=== PATIENT | male | born 1935 | race African-American/Black ===

== ENCOUNTER 2019-02-28 15:43 | Inpatient (IN) | payer MEDICARE, MEDICAID ==
[~2019-02-28 15:43] MED LIST: Heparin 10,000 UNITS/ 10 ML VIAL ONE
--- NOTE | 2019-02-28 16:55 | RAD ---
FExam: Chest one view HISTORY:Lethargy. Fall. Comparison: 04/18/2016 FINDINGS: Cardiac silhouette:Normal. Atherosclerosis of the aortic knob. Pulmonary vessels: Normal Costophrenic angles: Clear LUNGS: No masses or consolidation. Pneumothorax: None Osseous abnormalities: None IMPRESSION: Atherosclerosis of the aorta No acute cardiopulmonary process.
[2019-02-28 17:42] LABS: Hemoglobin 10.6 g/dL (14.0-18.0); Mean Corpuscular HGB CONC 32.2 g/dL (32.0-36.0); Mean Corpuscular Hemoglobin 27.7 pg (27.0-31.0); Mean Platelet Volume 8.8 fL (7.4-10.4); Platelet Count 332 thou/uL (130-400); RBC Distribution Width 17.1 % (11.5-14.5); Red Blood Cell (RBC) Count 3.85 mill/uL (4.70-6.10); White Blood Cell (WBC) Count 38.2 thou/uL (4.8-10.8)
[2019-02-28 17:58] LABS: Anisocytosis SLIGHT = 6-15 cells (100X) (0-5/hpf); Band 23 % (5-11); Lymphocytes 1 % (21-51); MDiff Complete? YES; Monocytes 2 % (0-10); Neutrophil 74 % (42-75); Platelet Morphology Comment Appears Adequate
[2019-02-28] MEDS ORDERED: Sodium Chloride 0.9% 100 ML ONE (17:58)
[2019-02-28] MEDS ORDERED: Piperacillin/Tazobactam 4.5 GM VIAL ONE (17:58)
[2019-02-28 18:27] LABS: CKMB 1.8 ng/mL (0-6.6)
[2019-02-28 18:45] LABS: ALT (SGPT) 13 U/L (8-55); AST (SGOT) 9 U/L (5-34); Albumin 3.1 g/dL (3.4-4.8); Alkaline Phosphatase 91 U/L (40-150); BUN (Urea Nitrogen) 112 mg/dL (8.4-25.7); Bilirubin, Total 0.2 mg/dL (0.2-1.2); Calc. Creatinine Clearance 0 mL/min (70-130); Chloride 113 mmol/L (98-107); Estimated GFR-MDRD 14; Globulin 4.1 g/dL (2.4-3.5); Glucose 100 mg/dL (83-110); Lipase 121 U/L (8-78); Potassium 5.6 mmol/L (3.5-5.1); Protein, Total 7.2 g/dL (5.8-8.1); Sodium 141 mmol/L (136-145)
[2019-02-28 18:48] LABS: Carbon Dioxide Less than 8 mmol/L (23-31)
--- NOTE | 2019-02-28 19:05 | CT ---
FEXAM: CT abdomen and pelvis without contrast PROVIDED CLINICAL HISTORY: Malaise COMPARISON: 04/18/2016 FINDINGS: The visualized lung bases are free of significant opacity. Bleb involving right middle lobe redemonst rated. The solid abdominal organs are suboptimally evaluated in the absence of IV contrast but demonstrate a stable unenhanced CT appearance. Dilation is limited by patient respiratory motion and streak artifa ct. No bowel dilatation, inflammatory fat stranding, free fluid or free air apparent. Large left hydr ocele is redemonstrated. Conspicuous vascular calcification. The osseous structures demonstrate no acute findings. IMPRESSION: No evidence for an acute process with limitations as above.
[2019-02-28] MEDS ORDERED: Clindamycin/D5W 900 mg/50 ml Premix Bag ONE (19:37)
[2019-02-28 19:41] LABS: Bilirubin Negative (Negative); Blood, Urine Small (Negative); Clarity CLOUDY (Clear); Glucose, Urine (Dipstick) Negative (Negative); Leukocyte Large (Negative); Nitrite Negative (Negative); Protein, Urine (Dipstick) 30 mg/dL (Neg-Trace); Specific Gravity, Urine 1.012 (1.002-1.036); Urobilinogen 0.2 mg/dL (0.2-1.0)
[2019-02-28 19:45] LABS: Yeast-AUWi Flag 211.3 (0-25.0)
[2019-02-28 19:53] LABS: Bacteria/HPF 1+ HPF (None Seen); Crystals/HPF 1+ CA OXALATE HPF (Negative); Manual Microscopic Reviewed? No Path Casts Seen; Renal Epithelial None Seen HPF (0-3); Transitional Epithelial NONE SEEN HPF (0-3); Yeast-All Forms 2+ HPF (None Seen)
[2019-02-28] MEDS ORDERED: Heparin 1,000 UNITS/ML VIAL ONE (20:17)
[2019-02-28 20:19] LABS: Base Excess-Venous -21.2 mmol/L (-2.0 to 3.0); Bicarbonate (HCO3v) 5.7 mmol/L (22.0-28.0); CO2 Tension (PvCO2) 16.5 mmHg (40.0-50.0); Calcium, Ionized 1.09 mmol/L (See Comments:); Chloride 123 mmol/L (98-107); O2 Tension (PvO2) 49.5 mmHg (35.0-45.0); Potassium 5.2 mmol/L (3.5-5.1); Sodium 139 mmol/L (138-145); T. Carbon Dioxide 6.2 mmol/L (22.0-28.0); pH (Venous) 7.148 (7.320-7.430); vO2 Saturation-calc 74.6 % (60.0-85.0)
--- NOTE | 2019-02-28 20:27 | RAD ---
CHEST ONE VIEW 02/28/19 COMPARISON: 02/28/19 HISTORY: Pain. Malaise. FINDINGS: Interval placement of a right sided vascular catheter, likely internal jugular in origin. Distal tip projects over the expected region of the superior vena cava. Atherosclerosis of the aorta is noted. S table cardiac silhouette. Lung volumes are slightly diminished when compared to the previous examinat ion. No consolidation or masses. No pneumothorax on this supine projection. IMPRESSION: Interval placement of a right sided vascular catheter. No pneumothorax on this supine projection. POS: PPP
[2019-02-28] MEDS ORDERED: Sodium Bicarb 50 MEQ/50 ML Abboject 8.4% SYRINGE ONE ×2 (20:31→20:34)
[2019-02-28] MEDS ORDERED: Sodium Bicarb 50 MEQ/50 ML VIAL ONE (20:36)
[2019-02-28] MEDS ORDERED: Acetaminophen 325 MG TAB PO PRN (21:41)
[2019-02-28] MEDS ORDERED: Ondansetron PF 4 MG/2 ML Vial IVP PRN (21:41)
[2019-02-28] MEDS ORDERED: Guaifenesin DM 100-10/5 ML UDCUP PO PRN (21:41)
[2019-02-28] MEDS ORDERED: Zolpidem Tartrate 5 MG TAB PO PRN (21:41)
[2019-02-28] MEDS ORDERED: Senokot S 8.6-50 MG TAB PO PRN (21:41)
[2019-02-28] MEDS ORDERED: Dextrose 5% in Water 1,000 ML IV PRN (21:51)
[2019-02-28] MEDS ORDERED: Insulin Regular 300 UNITS/3 ML VIAL SC PRN (21:51)
[2019-02-28] MEDS ORDERED: Dextrose 50% Abboject 50 ML SYRINGE SLOW IVP PRN (21:51)
--- NOTE | 2019-02-28 22:02 | PDOC.EVN ---
Event Note - Event Note Event Note: H&P [id number]
[2019-02-28 22:19] LABS: Actual Bicarbonate (HCO3a) 7.7 mEq/L (22-28); Analyzer IN Cardio ER; Base Excess (BEa) -18.3 mEq/L (-2.0 to +3.0); Calcium, Ionized 1.13 mmol/L (1.12-1.30); Carboxyhemoglobin (COHb) 0.3 gm% (0.0-3.0); Hemoglobin (Hb) 8.7 g/dL (14.0-18.0); O2 Tension (PaO2) 109.4 mmHg (> 60.0); Potassium - ABG Lab 4.97 mmol/L (3.70-5.30)
[2019-02-28 22:20] LABS: pH, Arterial 7.21 (7.35-7.45)
[2019-02-28 22:21] LABS: CO2 Tension 19.8 mmHg (35.0-45.0); Puncture Site RRA
[2019-02-28 22:48] LABS: Lactic Acid 5.9 mmol/L (0.5-2.2)
--- NOTE | 2019-02-28 22:51 | HP ---
CHIEF COMPLAINT: Not feeling well. HISTORY OF PRESENT ILLNESS: This is an 83-year-old male, extremely poor historian, does not provide any real history to be honest. History is per chart review and then discussion with the ER. The patient was apparently here in 2015 with similar complaints, was found to be in DKA at that point in time. At this point in time, the patient's physical examination and ER evaluation have resulted in a high white count of 38, pH of 7.15 with a pCO2 of 16, significant metabolic acidosis, bicarb less than 8 with an anion gap too high to count. The patient has a lactic acid of 6.4, elevated troponin, lipase of 121. Urinalysis that shows some blood and protein. Beta-hydroxybutyric acid level of 2.09, as well as a potassium of 5.6 and a creatinine of 4.86 and BUN of 112. Beyond this, no real history is available from the patient as he is not really talking much. The patient's medication review shows that he is on diabetic medications consistently metformin, which could potentially cause metformin acidosis. He does not state if he takes these drugs, but they were found on chart review as well as in medical reconciliation forms. The patient is seen and examined in the ER. No family at bedside. ALLERGIES: PER CHART REVIEW, NONE. PAST MEDICAL HISTORY: Diabetes, hypertension, and peripheral vascular disease. SOCIAL HISTORY: Unknown. FAMILY HISTORY: Unknown. REVIEW OF SYSTEMS: Not possible given the patient's physical condition. HOME MEDICATIONS: See MAR. PHYSICAL EXAMINATION: VITAL SIGNS: Blood pressure is 110/88, heart rate of 110, respiratory rate of 18, temperature of 98, and O2 saturations 100% on room air. HEENT: Pupils equal, round, and reactive to light and accommodation. Oral cavity moist and pink. NECK: Supple, mobile, and nontender. Thyroid appreciated. CARDIOVASCULAR: S1 and S2. 2/6 systolic ejection murmur. RESPIRATORY: Clear to auscultation bilaterally. No respiratory distress. ABDOMEN: Positive bowel sounds. Soft, nontender, and nondistended. EXTREMITIES: 2+ peripheral pulses noted. No cyanosis, clubbing, or edema. NEUROLOGIC: The patient withdraws to pain, responds to verbal stimuli. Does not make full sentences. Of note, the groin is enlarged and has a very foul smell. Nontender testicles. No pus noted. LABORATORY AND DIAGNOSTIC DATA: Abdominal CT scan and pelvic CT scan do not show any inflammatory process. Lab work as described in HPI. CBC, ABGs, chemistry panel, UA, toxicology reports were reviewed. ASSESSMENT: 1. Sepsis of unknown source. 2. Anemia. 3. Metabolic acidosis with respiratory compensation. 4. Lactic acidosis. 5. Elevated beta-hydroxybutyric acid. 6. Proteinuria. 7. Acute renal failure. 8. Hyperkalemia. 9. Possible uremia given elevated BUN. 10. Elevated troponins. PLAN: At this point in time, we will admit the patient in IMU. We will provide the patient with bicarb drip given significant acidosis. We will consult Nephrology. I am not sure if this is secondary to metformin use or if there is an infectious process somewhere. The patient likely has had this groin issue for a while, given that similar complaints led to a CT scan back in 2016, which did not show an inflammatory process. The patient does not have an inflammatory process at this point in time either. We will provide the patient with Zosyn for antibiotic coverage. We will also obtain blood cultures, which are ordered and pending. We will place a consult now to Nephrology as well as Infectious Disease. We will put the patient on sliding scale, n.p.o. for now. Repeat labs in a.m. We will obtain a BMP at 3 a.m. today, nurse to call me with results. Per documentation in the past, the patient has been a DNR. ER discussion with family stated the patient also be a DNR. However, I am unable to find any documentation stating that the patient is a DNR. So for now, we will refrain from putting a code status on him. If any family shows up for the patient, it is more coherent and wishes to make himself a DNR, this will need to be adjusted at a later time. No family at bedside, so no one to discuss the plan with. Overall prognosis appears to be guarded to poor. Job ID: [id number]
[2019-03-01] MEDS: Piperacillin/Tazobactam 3.375 GM in Sodium Chloride 0.9% 100 ML IVPB SCH ×5 (00:26→23:46)
[2019-03-01] MEDS: Sodium Bicarbonate 150 MEQ in Dextrose 5% in Water 1,000 ML IV SCH ×3 (02:13→17:30)
[2019-03-01 03:47] LABS: Anion Gap 22 mmol/L (10-20); BUN (Urea Nitrogen) 112 mg/dL (8.4-25.7); Calc. Creatinine Clearance 11 mL/min (70-130); Calcium 8.1 mg/dL (7.8-10.44); Chloride 113 mmol/L (98-107); Estimated GFR-MDRD 15; Glucose 232 mg/dL (83-110); Potassium 4.9 mmol/L (3.5-5.1); Sodium 139 mmol/L (136-145)
[2019-03-01 03:53] LABS: Carbon Dioxide 9 mmol/L (23-31)
[2019-03-01 04:00] LABS: Band 23 % (5-11); Hemoglobin 8.2 g/dL (14.0-18.0); Lymphocytes 2 % (21-51); MDiff Complete? YES; Mean Corpuscular Hemoglobin 27.4 pg (27.0-31.0); Mean Corpuscular Volume 85.5 fL (78.0-98.0); Mean Platelet Volume 8.9 fL (7.4-10.4); Monocytes 1 % (0-10); Neutrophil 74 % (42-75); Platelet Count 301 thou/uL (130-400); RBC Distribution Width 16.9 % (11.5-14.5); Red Blood Cell (RBC) Count 2.99 mill/uL (4.70-6.10); White Blood Cell (WBC) Count 35.2 thou/uL (4.8-10.8)
[2019-03-01] MEDS: Insulin Regular 300 UNITS/3 ML VIAL SC PRN ×2 (06:18→17:31)
[2019-03-01] MEDS ORDERED: glyBURIDE 2.5 MG TAB PO SCH (08:00)
[2019-03-01] MEDS: Aspirin Chewable 81 MG TAB PO SCH (09:39)
[2019-03-01 10:19] LABS: Anion Gap 19 mmol/L (10-20); BUN (Urea Nitrogen) 107 mg/dL (8.4-25.7); Calc. Creatinine Clearance 12 mL/min (70-130); Calcium 7.7 mg/dL (7.8-10.44); Carbon Dioxide 13 mmol/L (23-31); Chloride 111 mmol/L (98-107); Estimated GFR-MDRD 16; Glucose 205 mg/dL (83-110); Potassium 4.2 mmol/L (3.5-5.1); Sodium 139 mmol/L (136-145)
[2019-03-01 11:18] LABS: Creatinine, Urine 30.21 mg/dL (63-166)
--- NOTE | 2019-03-01 11:29 | CT ---
FCT brain. HISTORY: Altered mental status. Noncontrast enhanced CT images of the brain obtained. There is diffuse cortical atrophy and deep white matter ischemic changes. No evidence of acute intracranial masses, hemorrhages or strokes seen. There is abnormal opacification of the right mastoid air cells and middle ear. There is a area of monie ency through the right mastoid air cells. This may represent a right temporal bone fracture. IMPRESSION: 1: Diffuse cortical atrophy. 2: Right temporal bone fracture.
--- NOTE | 2019-03-01 14:34 | ULT ---
FTesticular ultrasound. HISTORY: Dilated scrotum and scrotal mass. Longitudinal and transverse images of the scrotum is obtained using multi hertz curvilinear transduce r. Real-time, color flow and spectral waveform Doppler analysis used to evaluate the scrotum. The right and left testicles are not visualized. There is a large heterogeneous area of mixed density within the testicle measuring approximately 10 x 10 cm. This collection has internal echoes and a fl uid fluid level. This may represent a intrascrotal hematoma versus abscess. No definite evidence of b lood flow seen within the collection. IMPRESSION: Mixed echogenic debris-filled heterogeneous intrascrotal material. The individual testicl es are difficult to visualize. If the patient has clinical symptoms of possible intrascrotal hematoma this is a possibility or other possibilities include abscess. Correlate with clinical exam.
[2019-03-01 16:49] LABS: Lactic Acid 2.2 mmol/L (0.5-2.2)
--- NOTE | 2019-03-01 17:35 | CT ---
FEXAM: CT abdomen and pelvis without contrast PROVIDED CLINICAL HISTORY: Perineal wound COMPARISON: 02/28/2019 FINDINGS: Trace left pleural fluid. Subsegmental atelectatic change left lung base. The solid abdominal organs demonstrate a stable CT appearance. No bowel dilatation, inflammatory fat stranding free fluid or free air apparent. Lou catheter is noted within urinary bladder with associ ated bladder gas. Large left hydrocele is noted. There is an irregular appearance to the perineum compatible with the p rovided clinical history of wound. There is no evidence for soft tissue gas more proximally within th e region of the ischiorectal fossa fat or medial proximal thigh regions. IMPRESSION: No significant interval change with respect to the prior examination is apparent.
--- NOTE | 2019-03-01 18:42 | CON ---
DATE OF CONSULTATION: 03/01/2019 REASON FOR CONSULTATION: Possible scrotal abscess. HISTORY OF PRESENT ILLNESS: Mr. Smiley is an 83-year-old male, who is a poor historian with multiple chronic medical problems including diabetes and multiple episodes of DKA as well as severe peripheral vascular disease. The patient is unable to provide much history. The majority of the history is obtained from the medical record as well as nursing. The patient had an admission at [facility] in 2016 with similar complaints, basically altered mental status and not feeling well. He was found to be in DKA at that time. The patient was sent from his nursing facility to the emergency room and was found to have a white blood cell count of 38, and was severely acidotic with a pH of 7.15, CO2 of 16, and a metabolic acidosis with a bicarb of less than 8. The patient's lactate at admission was 6.4. He had imaging of the abdomen and pelvis via CT as well as a brain CT. There was no significant hydroureteronephrosis. No stone diseases. The patient has a chronic scrotal edema and a very large hydrocele. He has some pressure sores on the posterior scrotum, which are chronic. He was evaluated during his hospitalization in [address] Chaidez for similar reason. Urology is being consulted to evaluate for potential abscess or source of his leukocytosis and sepsis appearance. There is currently no family at the bedside. The patient denies any pain currently. Initially when Urology was contacted about this, it was relayed that the only imaging that was performed was a scrotal ultrasound. However, a CT of the abdomen and pelvis on February 28 at the time of admission was performed. This was, however, repeated given the fact that it was not communicated a CT had already been done. REVIEW OF SYSTEMS: Unable to obtain secondary to the patient's condition. PAST MEDICAL HISTORY: Diabetes, hypertension, peripheral vascular disease. FAMILY HISTORY: Unknown. SOCIAL HISTORY: The patient lives in a nursing facility, otherwise unknown. HOME MEDICATIONS: See the medicine reconciliation form. These were reviewed. ALLERGIES: NO KNOWN DRUG ALLERGIES. PHYSICAL EXAMINATION: VITAL SIGNS: Afebrile, heart rate 94, blood pressure 144/62, oxygen saturation 100% on room air, respirations 13. GENERAL: He is awake and arousable, in no apparent distress. HEENT: Normocephalic, atraumatic. NECK: Supple. No masses or lymphadenopathy. CARDIOVASCULAR: Regular rate and rhythm. PULMONARY: Breathing unlabored. ABDOMEN: Soft, nontender/nondistended. No masses or organomegaly. No suprapubic tenderness to palpation. No suprapubic fullness. No CVA tenderness. GENITOURINARY: Uncircumcised penis. Meatus normal. Lou catheter in place draining clear yellow urine. Large left hydrocele. Left testis not palpable. Right testis palpable and atrophied, but otherwise normal. Mild skin breakdown on the posterior scrotum and scarring consistent with chronic pressure type wound on the posterior scrotum. No fluctuance/crepitus/surrounding erythema or induration. No purulent drainage. EXTREMITIES: No edema. NEUROLOGIC: The patient answers yes and no questions, but otherwise is not oriented. RADIOLOGY DATA: CT of the abdomen and pelvis demonstrates no significant findings consistent with abscess. There is a large left hydrocele. There is no air within the fluid. There is no evidence of soft tissue gas. Testicular ultrasound demonstrates mixed echogenic debris, filled heterogeneous intrascrotal material. Testicles are difficult to visualize. LABORATORY DATA: White blood cell count 35.2, hemoglobin 8.2, hematocrit 25.6, platelets 301. Sodium 139, potassium 4.2, chloride 111, bicarb 13, BUN 107, creatinine 4.35. Lactate 2.2. ASSESSMENT: An 83-year-old male with lactic acidosis, leukocytosis concerning for sepsis with history of poorly controlled diabetes as well as peripheral vascular disease with chronic left hydrocele and skin breakdown over posterior scrotum. PLAN: I reviewed all imaging with the patient and with nursing staff. Also reviewed his physical exam comparing this to how he was in 2016, there is essentially no change. The hydrocele is stable. There is some mild skin breakdown on the posterior scrotum, but no significant wound is present. There is no finding consistent with cellulitis, abscess, or any necrotizing infection either by imaging or physical exam. This is not likely contributing to the patient's leukocytosis and there is no indication for surgical intervention at this time. Urology can be reconsulted as necessary for questions. Thank you for allowing me to participate in the care of this patient. Job ID: [id number]
--- NOTE | 2019-03-01 18:59 | CON ---
DATE OF CONSULTATION: 03/01/2019 REASON FOR CONSULTATION: Altered mental status, metabolic acidosis, and bacteremia. HISTORY OF PRESENT ILLNESS: An 83-year-old, who has a history of type 2 diabetes, BPH, and hypertension, who was brought from [facility], after decrease in oral intake and having a fall the day before admission. Did not have any diarrhea. No seizure activity. He voids spontaneously without a catheter. On arrival, he was tachycardic and blood pressure was 104/56. The patient was given IV fluids and broad-spectrum antimicrobial therapy. The exam showed normal lung sounds. Heart exam showed S1 and S2 with tachycardia, but no murmurs. Abdomen was soft and not distended. There was marked enlargement of the testicular area structures. There was evidence of atrophy of the muscles of lower extremities. White cell count 38.2, hemoglobin 10.6, and platelets 332 with 22% bands. His creatinine on arrival was 4.86 with a baseline of 1.22 in 2016. Imaging studies included an abdomen and pelvis CT in a noncontrast study, unenhanced organs, which made their evaluation difficult. No bowel dilatation or evidence of inflammatory fat stranding. No free fluid. There is a large the left hydrocele noted. He had a brain CT, which demonstrated diffuse cortical atrophy and right temporal bone fracture. Currently, Mr. Smiley is obtunded he will briefly respond to questions, but he does not fully respond to orientation questions and does not follow commands very well. PAST MEDICAL HISTORY: Includes type 2 diabetes and cataracts, glaucoma, GERD, diarrhea intermittent, which is usually when he receives certain types of food stuffs, BPH, hydrocele, and hypertension. PAST SURGICAL HISTORY: Negative. ALLERGIES: NEGATIVE. SOCIAL HISTORY: No alcoholic beverages. Former smoker, quit more than 10 years ago. Lives in a [facility]. ALLERGIES: NONE. CURRENT MEDICATIONS: 1. Tylenol. 2. Aspirin. 3. Dextrose. 4. Glucagon. 5. Humulin. 6. Zofran. 7. Protonix. 8. Zosyn. 9. Zocor. 10. Zolpidem. PHYSICAL EXAMINATION: VITAL SIGNS: T-max 97.9, blood pressure 103/51, pulse 98, and respirations 21. SKIN: Shows inguinal areas of ulceration right behind the scrotum. Those are chronic, have been present more than a year, according to the [facility] nurse. GENERAL: He appears chronically ill, but in no acute distress. He is obtunded and does not respond orientation questions. He will say yes to certain questions, but it does not clear that he has any meaning to the answers that he gives. HEENT: His ocular movements are conjugate. Oral cavity with no pechanga teeth remaining in place. Oral mucosa normal. No thrush. LUNGS: Symmetric air entry. HEART: S1 and S2 with a soft aortic murmur. Regular rate. ABDOMEN: Soft, not distended or tender. Marked enlargement of the scrotal structures. EXTREMITIES: Plantar responses are indifferent. Pulses are diminished in dorsalis pedis. No edema noted. NEUROLOGIC: He is awake. Knew his name, but did not know where he was, could not elaborate on any answers. LABORATORY DATA: White cell count down to 35.2 and hemoglobin 8.2, platelets 301,000, and 23% bands. Sodium 139 and creatinine 4.86. Liver profile normal. Albumin 3.1. Urinalysis with 11 to 20 wbc's. Microbiology with 2 sets of blood cultures with E. coli. Urine culture, no growth at 24 hours. ASSESSMENT: 1. 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 2. New onset of general malaise with fever, vomiting. 3. Acute renal failure. 4. Lactic acidosis. 5. Escherichia coli bacteremia. DISCUSSION: Differential diagnosis includes urinary tract infection with urosepsis. There is no evidence to suggest a respiratory tract infection at this point in time. No other intraabdominal inflammatory process identified on abdomen and pelvis CT scan and the liver function tests were within the normal limits. The urinalysis showed a moderate pyuria. The urine culture has not yielded any organism growth at 24 hours. If the final urine culture results remain negative, then we will have to consider alternate possibilities. Endocarditis would be unlikely with Escherichia coli. Job ID: [id number]
[2019-03-01] MEDS: Simvastatin 20 MG TAB PO SCH (21:25)
--- NOTE | 2019-03-01 21:44 | PDOC.PN ---
- Subjective Encounter Start Date: 03/01/19 Encounter Start Time: 10:15 Subjective: pt in bed awake, appears ill - Objective Resuscitation Status - Order Detail: 03/01/19 05:24 Resuscitation Status Routine Resuscitation Status: DNAR: NO Resuscitation Discussed with: out of hospital DNR as well as paperwork in file Vital Signs & Weight: Vital Signs (12 hours) Temp 03/01/19 19:18 98.4 F Weight Admit Weight 134 lb 8 oz Weight 137 lb 6 oz Most Recent Monitor Data Heart Rate from ECG 105 NIBP 125/57 NIBP BP-Mean 79 Respiration from ECG 19 SpO2 100 I&O: 02/28/19 03/01/19 03/02/19 06:59 06:59 06:59 Intake Total 976 1959 Output Total 475 470 Balance 501 1489 Result Diagrams: 03/01/19 03:10 03/01/19 09:44 Additional Labs: Accuchecks 03/01/19 03/01/19 03/01/19 20:06 16:50 11:28 POC Glucose 245 H 278 H 192 H 03/01/19 05:48 POC Glucose 279 H Phys Exam - Physical Examination dry mucus membranes, cachexia Respiratory: no wheezing, no rales, no rhonchi, wheezing present, clear to auscultation bilateral Cardiovascular: RRR, no significant murmur, no rub, gallop, irregular Gastrointestinal: soft, non-tender, no distention, positive bowel sounds Musculoskeletal: no edema, pulses present, edema present oriented x1 Dx/Plan (1) Bacteremia Code(s): R78.81 - BACTEREMIA Status: Acute (2) ANGELA (acute kidney injury) Code(s): N17.9 - ACUTE KIDNEY FAILURE, UNSPECIFIED Status: Acute (3) Sepsis Code(s): A41.9 - SEPSIS, UNSPECIFIED ORGANISM Status: Acute (4) Hydrocele Code(s): N43.3 - HYDROCELE, UNSPECIFIED Status: Chronic (5) Protein-calorie malnutrition, moderate Code(s): E44.0 - MODERATE PROTEIN-CALORIE MALNUTRITION Status: Chronic - Plan will continue iv abx for now, ID has been consulted -: pt on bicarb drip will continue and nephrology has been consulted -: speech to evaluate for risk of aspiration -: nephrology recommended urology consult given his scrotum lesions and -: concern for abscess. * . Review of Systems - Review of Systems Respiratory: negative: Cough, Dry, Shortness of Breath, Hemoptysis, SOB with Excertion, Pleuritic Pain, Sputum, Wheezing Cardiovascular: negative: chest pain, palpitations, orthopnea, paroxysmal nocturnal dyspnea, edema, light headedness, other Gastrointestinal: negative: Nausea, Vomiting, Abdominal Pain, Diarrhea, Constipation, Melena, Hematochezia, Other - Medications/Allergies Allergies/Adverse Reactions: Allergies Allergy/AdvReac Type Severity Reaction Status Date / Time No Known Allergies Allergy Verified 03/01/19 01:12 Medications: Current Medications Acetaminophen (Tylenol) 650 mg PO Q4H PRN PRN Reason: Headache/Fever/Mild Pain (1-3) Aspirin (Aspirin Chewable) 81 mg PO DAILY [facility] Last Admin: 03/01/19 09:39 Dose: 81 mg Dextrose/Water (Dextrose 50%) 25 gm SLOW IVP PRN PRN PRN Reason: Hypoglycemia Glucagon (Glucagon) 1 mg IM PRN PRN PRN Reason: Hypoglycemia Guaifenesin/Dextromethorphan (Robitussin Dm) 15 ml PO Q4H PRN PRN Reason: Cough Sodium Bicarbonate 150 meq/ (Dextrose/Water) 1,150 mls @ 150 mls/hr IV ONE [facility] Stop: 03/03/19 05:24 Last Admin: 03/01/19 17:30 Dose: 1,150 mls Piperacillin Sod/Tazobactam (Sod 3.375 gm/ Sodium Chloride) 100 mls @ 200 mls/ hr IVPB Q6HR [facility] Last Admin: 03/01/19 17:30 Dose: 100 mls Dextrose/Water (D5w) 1,000 mls @ 0 mls/hr IV .Q0M PRN PRN Reason: Hypoglycemia Insulin Human Regular (Humulin R) 0 units SC .MILD SLIDING SCALE PRN PRN Reason: Mild Correctional Scale Last Admin: 03/01/19 17:31 Dose: 4 unit Insulin Human Regular (Humulin R) 0 units SC .BEDTIME SLIDING SC PRN PRN Reason: Bedtime Correctional Scale Ondansetron HCl (Zofran) 4 mg IVP Q6H PRN PRN Reason: Nausea/Vomiting Pantoprazole Sodium (Protonix) 40 mg PO QPM [facility] Last Admin: 03/01/19 21:25 Dose: 40 mg Senna/Docusate Sodium (Senokot S) 2 tab PO BIDPRN PRN PRN Reason: Constipation Simvastatin (Zocor) 10 mg PO HS [facility] Last Admin: 03/01/19 21:25 Dose: 10 mg Sodium Chloride (Flush - Normal Saline) 10 ml IVF Q12H PRN PRN Reason: Saline Flush Zolpidem Tartrate (Ambien) 5 mg PO HSPRN PRN PRN Reason: Insomnia
--- NOTE | 2019-03-02 01:26 | CON ---
DATE OF CONSULTATION: 03/01/2019 HISTORY OF PRESENT ILLNESS: Mr. Smilye is an 83-year-old male who is admitted last night with metabolic acidosis. He is a do not resuscitate patient. He lives at full-time care environment. He is unable to give a history. He thinks he is in [facility] today when he actually lives at [facility]. All he says that he nod to yes or no questions. PAST MEDICAL HISTORY: Remarkable for, 1. Dementia. 2. Diabetes. 3. Hypertension. 4. Peripheral vascular disease. He has been in the hospital here since 2016. At that time, discharge diagnosis was skin abscess with status post incision and drainage, Klebsiella pneumoniae bacteremia, clinical sepsis, diabetic ketoacidosis (80 years old), urinary tract infection, acute kidney failure, and metabolic encephalopathy. He apparently was unable to give history when he was admitted in March of 2016. FAMILY HISTORY: Negative for lung disease, what I can tell in early age looking at old records. REVIEW OF SYSTEMS: 10 point review of systems completed, not obtainable. SOCIAL HISTORY: Not obtainable. ALLERGIES: HE HAS NO REPORTED DRUG ALLERGIES. PHYSICAL EXAMINATION: GENERAL: He is cachectic. He has temporal muscle wasting. VITAL SIGNS: Heart rate 105, blood pressure 131/60, respiratory rate 19. HEENT: Pupils react. Extraocular movements appear full. NECK: Supple. LUNGS: Clear. HEART: Regular rhythm. S1 and S2 are normal. No murmur. ABDOMEN: Soft. No guarding or tenderness. EXTREMITIES: Without edema. He moves all 4 extremities and cooperates with being rolled over in bed. LABORATORY DATA: White count 35.2, hemoglobin 8.2, platelets 301,000, he has 23 % bands on peripheral smear. PH 7.21, pCO2 of 19, pO2 of 109 yesterday. Sodium 139 , potassium 4.2, chloride 111, bicarb 13, BUN 107, creatinine 4.35, anion gap is 17 yesterday on admission. IMPRESSION: 1. Metabolic acidosis is multifactorial. It is unlikely that this is a type 1 diabetic with ketoacidosis now. It is much more likely that his acidemia brought on by severe renal insufficiency. He has no muscle mass, so his creatinine of 4 is probably the equivalent of a creatinine of 6 or 7. He did have an abdomen and pelvis CT today, which was compared to old 2 CTs showing no change. 2. Severe intravascular volume depletion. 3. Cachexia and muscle wasting. 4. Chronic kidney disease with acute decompensation. His acid-base status appears to have improved. His encephalopathy improved to a point where he is at least answering questions with one word. 5. His prognosis is quite poor, long-term. 6. Cultures are growing Escherichia coli from his blood. This is likely urinary pathogen. We will continue antimicrobial therapy. 7. He could be transferred out of the intermediate care unit in the morning. This is a 50-minute consult, with greater than 50% of the time spent on the unit coordinating care. Job ID: [id number] MTDD
[2019-03-02 04:54] LABS: Albumin 2.2 g/dL (3.4-4.8); Anion Gap 17 mmol/L (10-20); BUN (Urea Nitrogen) 103 mg/dL (8.4-25.7); BUN/Creatinine Ratio 25.18; Calc. Creatinine Clearance 12 mL/min (70-130); Calcium 7.4 mg/dL (7.8-10.44); Carbon Dioxide 23 mmol/L (23-31); Chloride 108 mmol/L (98-107); Estimated GFR-MDRD 17; Glucose 169 mg/dL (83-110); Phosphorus 3.2 mg/dL (2.3-4.7); Potassium 3.5 mmol/L (3.5-5.1); Sodium 144 mmol/L (136-145)
[2019-03-02 04:59] LABS: Magnesium 0.9 mg/dL (1.6-2.6)
[2019-03-02] MEDS ORDERED: Magnesium 2 GM/50 ML 2 GM in Premix Bag 1 BAG IVPB SCH ×2 (05:30→11:15)
[2019-03-02] MEDS: Piperacillin/Tazobactam 3.375 GM in Sodium Chloride 0.9% 100 ML IVPB SCH (05:54)
[2019-03-02] MEDS: Insulin Regular 300 UNITS/3 ML VIAL SC PRN (06:04)
--- NOTE | 2019-03-02 07:48 | CON ---
DATE OF CONSULTATION: 03/01/2019 REASON FOR CONSULTATION: Acute kidney injury and electrolyte derangement. CHIEF COMPLAINT: Mental status change and malaise. HISTORY OF PRESENT ILLNESS: The patient is an 83-year-old male with known history of diabetes mellitus, requiring insulin associated with prior DKA; hypertension; peripheral vascular disease and others, who was brought in from the long-term due to worsening malaise and decreased responsiveness. History is grossly limited as the patient is unable to give any significant history. Review of medical records showed that the patient reportedly had an unwitnessed fall in the long-term the day prior to presentation. The patient also was noted to be lethargic on presentation to the hospital, but currently is awake and able to answer some few questions. He reported that he had some nausea and vomiting in the long-term, but that has subsided at this time. He denied any chest pain, abdominal pain, fever, or diarrhea. On presentation to the ER on 28 February 2019, the patient was noted to be lethargic and further evaluation reveals metabolic acidosis as well as hyperkalemia, leukocytosis, and acute kidney injury, hence was admitted. Nephrology consult was requested for electrolyte derangement, metabolic acidosis, and acute kidney injury. Of note, the patient reports had similar presentation in 2016 and was treated with appropriate antibiotics, IV fluid with resolution of acute kidney injury. PAST MEDICAL HISTORY: 1. Diabetes mellitus with prior DKA. 2. Hypertension. 3. Hydrocele. 4. Recurrent genital infection. 5. BPH. 6. Gastroesophageal reflux disease. 7. CKD. PAST SURGICAL HISTORY: The patient was unable to give any significant history on this. However, review of medical records showed that he has no prior surgical history. SOCIAL HISTORY: The patient currently lives in [facility]. He is a former smoker. FAMILY HISTORY: Unable to obtain, but noncontributory. ALLERGIES: NO KNOWN DRUG ALLERGIES REPORTED. PRIOR MEDICATIONS (HOME MEDICATIONS): 1. Trazodone 25 mg p.o. at bedtime. 2. Metformin 1000 mg p.o. b.i.d. 3. Pravastatin 20 mg p.o. daily at bedtime. 4. Lisinopril 2.5 mg p.o. daily. 5. Sliding scale insulin. 6. Doxycycline 100 mg p.o. b.i.d. 7. Aspirin 81 mg p.o. daily. 8. Loratadine 10 mg daily. 9. Acetaminophen 325 mg p.o. q.6 p.r.n. 10. Maalox 20 mL p.o. b.i.d. p.r.n. 11. Ranitidine 75 mg p.o. daily. 12. Levemir 4 units subcu q.p.m. 13. Glipizide 2.5 mg p.o. b.i.d. 14. Robitussin DM 10 mL p.o. q.6 p.r.n. CURRENT INPATIENT MEDICATIONS: 1. Acetaminophen 650 mg p.o. q.4 p.r.n. 2. Aspirin 81 mg p.o. daily. 3. Glyburide 2.5 mg p.o. b.i.d. 4. Robitussin DM 15 mL p.o. q.4 hours p.r.n. 5. Sliding scale regular insulin. 6. Ondansetron 4 mg IV q.6 p.r.n. 7. Protonix 40 mg p.o. q.p.m. 8. Zosyn 3.375 q.6 hours scheduled. 9. Senna/docusate sodium two tablets p.o. b.i.d. p.r.n. 10. Simvastatin 10 mg p.o. at bedtime. 11. Sodium bicarbonate 150 mEq in dextrose water running at 150 mL/h. 12. Ambien 5 mg p.o. at bedtime p.r.n. REVIEW OF SYSTEMS: This could not be reliably performed due to the patient's mental status. PHYSICAL EXAMINATION: VITAL SIGNS: On presentation to the ER on February 28, 2019, the patient had the following vitals. BP 104/56, pulse 110, respiratory rate 18, temperature 98, SpO2 of 98 on room air. Current vitals on March 01 2019, showed blood pressure 103/51, respiratory rate of 21, SpO2 of 100 on room air, heart rate of 98. GENERAL: Confused elderly male, in no obvious distress. Afebrile. Anicteric and acyanotic. HEENT: Normocephalic, atraumatic. Pupils are reacting to light slowly. Oral mucosa is moist. Extraocular muscles are intact. CARDIOVASCULAR: Regular rhythm and rate with normal heart sounds 1 and 2. RESPIRATORY: Fair air entry bilaterally with some transmitted sounds. No obvious rhonchi were appreciated. No use of accessory muscles also was appreciated. GI: Abdomen is full, soft with mild questionable tenderness, especially in lower regions. Bowel sound is normoactive. UROGENITAL: Lou catheter is in place. Large scrotal swelling/mass with possible tenderness noted. A nodular part is noted on the posterior aspect with an opening with no obvious drainage. There seems to be some tenderness. SKIN: Skin breakdown noticed on the right upper thigh. Dry skin with chafing noticed in both lower extremities. NEUROLOGIC: The patient is conscious and alert. Oriented to person and place. Cranial nerves 2 through 12 are grossly intact. Moves all extremities, but weakly spontaneously. DIAGNOSTIC DATA: BMP at 9:44 a.m. on March 01, 2019, showed sodium 139, potassium 4.2, chloride 111, CO2 of 13, anion gap 19, BUN 107, creatinine 4.35, glucose 205, calcium 7.7. Of note, on presentation, sodium was 141, potassium 5.6, chloride 113, CO2 less than 8, BUN 112, creatinine 4.86, calcium 9.0. AST 9, ALT 13, alkaline phosphatase 91, total bilirubin 0.2, glucose 100, total protein 7.2, albumin 3.1. CBC today showed WBC count of 35.2, hemoglobin of 8.2, MCV of 85.5, platelet of 301. Of note, on presentation, WBC was 38.2, hemoglobin 10.6, and platelets 332. Other pertinent chemistry as follows. Lactic acid 6.4 on presentation. Beta hydroxybutyrate 2.09. Lipase 121. Arterial blood gas performed on February 28 showed pH of 7.2, pCO2 of 19.8, PO2 of 109.4, base excess of 18.3. Urinalysis on presentation showed specific gravity of 1.012. Urine protein of 30 , negative glucose, ketones, nitrite, and bilirubin. Microscopy showed 4 to 6 rbc , 11 to 20 wbc, 4 to 6 squamous cells, 1+ calcium oxalate, and 11 to 20 hyaline casts. Urine electrolytes showed urine protein of 56, urine creatinine of 30.21. Urine sodium of 38 and urine urea nitrogen of 450. Blood cultures are growing E coli Cardiac markers on presentation showed CK-MB of 1.8 and troponin of 0.037. EKG on presentation showed sinus tachycardia with rate of 110. No low voltages were noted, but no obvious ischemic changes appreciated. CT scan of the abdomen and pelvis showed no bowel dilatation, inflammatory fat stranding, free fluid or free air noted. Large left hydrocele is noted as before when compared to CT scan of April 18, 2016. Chest x-ray performed on presentation showed normal cardiac silhouette with atherosclerotic aortic knob. Normal pulmonary vessels and clear costophrenic angle with no lung masses or consolidation or pneumothorax. CT scan of the brain performed earlier today showed diffuse cortical atrophy and deep white matter ischemic changes with no evidence of acute intracranial masses , hemorrhage, or stroke seen. However, there is an abnormal opacification of the right mastoid air cells and middle ear, and there is an area of lucency to the right mastoid air cells, which may represent a right temporal bone fracture. ASSESSMENT: Acute kidney injury: Etiology is unclear. Hemodynamic mediated ANGELA is possible given sepsis and dehydration. ATN is a possibility given Fractional excretion of sodium of 3.94. The patient reported nausea and vomiting and a report from the long-term noted the patient has not been eating in the last 2 or 3 days prior to presentation. The patient is still making urine. High anion gap metabolic acidosis: Multifactorial from lactic acidosis due to metformin, sepsis, and possible GI losses. Mildly elevated beta hydroxybutyric acid, most likely due to starvation ketosis. DKA is unlikely given low normal blood sugar on presentation. Metabolic acidosis is improving with sodium bicarbonate infusion and improving hemodynamics. CKD stage 3 with proteinuria. Hyperkalemia: Most likely due to metabolic acidosis. Resolved with improvement of metabolic acidosis. Acute metabolic encephalopathy: Multifactorial due to dehydration, sepsis, and ANGELA. Mental status reportedly has improved. The patient is currently awake and is oriented to person and place. Elevated troponin. Large left-sided hydrocele. E coli bacteremia with Sepsis: Source of infection is unclear Genital infection is a concern. Nodular posterior scrotum with opening is suggestive of draining abscess. ? UTI PLAN: We will continue hydration at this time with bicarb infusion and monitor oral intake and urine output, renal function and electrolytes. There is no need for dialysis at this time. We will recheck renal function in the morning. We will recommend discontinuation of glyburide at this time. Evaluation of scrotal wound by urology given large hydroceoel and recurrent genital infection may be helpful. Many thanks for involving us in the care of this patient. We will continue to follow along with you. Job ID: [id number] [facility]
--- NOTE | 2019-03-02 08:36 | CON ---
DATE OF CONSULTATION: ADDENDUM: The patient has a very large area of fluid collection in the scrotal area and there is appearance of fluid level and I would advise a needle aspirate to rule out an abscess. I would do this with in-consultation with Urology. Job ID: [id number]
[2019-03-02] MEDS: Aspirin Chewable 81 MG TAB PO SCH (09:05)
--- NOTE | 2019-03-02 10:43 | PRG ---
DATE OF SERVICE: 03/02/2019 SUBJECTIVE: Mr. Smiley is more verbal today, says he is cold, still thinks he is at [place]. OBJECTIVE: VITAL SIGNS: He is afebrile. Oximetry is 98% on room air, heart rate 78, and blood pressure 116/65. LUNGS: Clear anteriorly. HEART: Regular rhythm. ABDOMEN: Soft. LABORATORY DATA: White count 35 yesterday. There is no lab ordered today. Sodium 144, potassium 3.5, chloride 108, bicarb 23, BUN 103, and creatinine 4.09. IMPRESSION: Metabolic acidosis. It is likely a mixture of hyperchloremic acidosis and renal failure induced metabolic acidosis. He is clinically stable to move out of the Intermediate Care Unit, my opinion. With this renal insufficiency, he should not be maintained with oral agents for diabetes control. He is not a candidate for dialytic intervention. Job ID: [id number]
--- NOTE | 2019-03-02 11:51 | PRG ---
DATE OF SERVICE: 03/02/2019 SUBJECTIVE: An 83-year-old male admitted with acute mental status change and generalized weakness. The patient was found to have acute renal failure, necessitating Nephrology consult. He also was found to have sepsis from E. coli bacteremia, for which he is getting antibiotics. The patient is having frequent loose stools. He is more awake, very still confused somewhat. He is still unable to provide any significant history and has significant memory lapses. There has been no vomiting, however, since admission. OBJECTIVE: VITAL SIGNS: Temperature 97.8, pulse 78, respiratory rate 15, SpO2 of 98% on room air, and blood pressure 116/65. GENERAL: Chronically ill-looking elderly male, in no obvious distress. Afebrile, anicteric, acyanotic. HEENT: Normocephalic and atraumatic. Oral mucosa is dry. Pupils are reacting to light. RESPIRATORY: Fair air entry bilaterally with some transmitted sounds. No use of accessory muscles or respiratory distress. CARDIOVASCULAR: Regular rhythm and rate with normal heart sounds. GI: Abdomen is flat, soft, and nontender with normal bowel sounds. UROGENITAL: Large scrotal swelling noted. Lou catheter is in place. NEUROLOGIC: Conscious and alert, oriented to person and place. Memory lapse is noted. The patient obeys simple commands. Moves all extremities. Cranial nerves 2 through 12 are grossly intact. SKIN: Very dry skin with patchy hyperpigmentation and scaly. DIAGNOSTIC DATA: Renal function panel today showed sodium 144, potassium 3.5, chloride 108, CO2 of 23, anion gap 17, creatinine 4.09, BUN 103, glucose 169, calcium 7.4, phosphorus 3.2, albumin 2.2. Serum magnesium is 0.9. Blood culture collected on presentation is growing E. coli in 2 of 2 samples. ASSESSMENT: Acute renal failure: Most likely due to prerenal from dehydration. The patient also has sepsis. Moderate to severe dehydration: Most likely due to GI losses and poor intake. The patient is still having frequent loose stools. Frequent loose stools: Clostridium difficile colitis is a concern given severe metabolic acidosis. Metabolic acidosis: Improving with improved hemodynamics and bicarb infusion. PLAN: We will continue fluid resuscitation with bicarb containing fluids intravenously. We will replete serum magnesium with magnesium sulfate. We will get C. diff toxin assay. We will monitor renal function and electrolytes and replete as needed. Monitor intake and output. We will continue to follow along with you. Job ID: [id number]
[2019-03-02] MEDS: Sodium Chloride 0.9% 1,000 ML IV SCH (12:07)
[2019-03-02] MEDS: Sodium Bicarbonate 150 MEQ in Dextrose 5% in Water 1,000 ML IV SCH ×2 (12:07→23:05)
[2019-03-02] MEDS: MEROPENEM 1 GM/50 ML 1 GM in Premix Bag 1 BAG IVPB SCH ×2 (13:13→22:09)
[2019-03-02] MEDS ORDERED: Meropenem 1 GM in Sodium Chloride 0.9% 100 ML IVPB SCH (14:00)
--- NOTE | 2019-03-02 14:42 | PDOC.PN ---
- Subjective Encounter Start Date: 03/02/19 Encounter Start Time: 14:41 Patient seen and examined, no major issues overnight, all questions answered. - Objective Resuscitation Status - Order Detail: 03/01/19 05:24 Resuscitation Status Routine Resuscitation Status: DNAR: NO Resuscitation Discussed with: out of hospital DNR as well as paperwork in file Vital Signs & Weight: Vital Signs (12 hours) Temp Pulse Ox 03/02/19 12:00 98.7 F 03/02/19 07:52 98 03/02/19 07:15 97.8 F 03/02/19 04:00 98.8 F Weight Admit Weight 134 lb 8 oz Weight 137 lb 1.6 oz Most Recent Monitor Data Heart Rate from ECG 85 NIBP 122/61 NIBP BP-Mean 81 Respiration from ECG 13 SpO2 100 I&O: 03/01/19 03/02/19 03/03/19 06:59 06:59 06:59 Intake Total 976 2639 Output Total 475 1070 Balance 501 1569 Result Diagrams: 03/01/19 03:10 03/02/19 03:30 Additional Labs: Accuchecks 03/02/19 03/02/19 03/01/19 11:37 06:04 20:06 POC Glucose 80 167 H 245 H 03/01/19 16:50 POC Glucose 278 H Phys Exam - Physical Examination Constitutional: NAD HEENT: PERRLA, moist MMs, sclera anicteric Neck: no nodes, no JVD, supple Respiratory: no wheezing, no rales, no rhonchi Cardiovascular: RRR, no rub faint murmur Gastrointestinal: soft, non-tender, no distention Musculoskeletal: pulses present, edema present (trace) Dx/Plan (1) ANGELA (acute kidney injury) Code(s): N17.9 - ACUTE KIDNEY FAILURE, UNSPECIFIED Status: Acute (2) Bacteremia Code(s): R78.81 - BACTEREMIA Status: Acute (3) Physical deconditioning Code(s): R53.81 - OTHER MALAISE Status: Acute (4) Sepsis Code(s): A41.9 - SEPSIS, UNSPECIFIED ORGANISM Status: Acute (5) Protein-calorie malnutrition, moderate Code(s): E44.0 - MODERATE PROTEIN-CALORIE MALNUTRITION Status: Chronic - Plan * E.Coli bacteremia, ESBL+, change to merrem * transfer to med sx * DNR/DNI * lengthy discussion held with daughter Ms. Kacey Loving, via phone [phone] , regarding prognosis * for now will continue with current plan of care but will also consult paliative care services for assistance, overall patient prognosis is poor * no other changes in plan of care * case and plan d/w patient and daughter(via phone) at [facility], they understood and agreed with this plan.
--- NOTE | 2019-03-02 17:46 | PRG ---
DATE OF SERVICE: 03/02/2019 SUBJECTIVE: Mr. Smiley is transferred to Oncology area and he is awake, but he again has quite marked cognitive dysfunction and it is impossible to get accurate information from him. He does not appear to be in distress. He has complains of being cold. OBJECTIVE: VITAL SIGNS: With a T-max of 98.7, blood pressure 118/58, pulse 77, respirations 20, and O2 saturations 98%. GENERAL: Chronically ill-appearing. HEENT: Ocular movements conjugate. LUNGS: Symmetric air entry. HEART: S1 and S2, regular rate. ABDOMEN: Soft. Not distended. EXTREMITIES: In the right groin, there are 2 or 3 openings with purulent drainage, which seemed to increase when we expressed the lateral aspect of the scrotum and the inguinal canal. LABORATORY DATA: White cell count 35.2, hemoglobin 8.2, platelets 301. Glucose 169. Microbiology with yeast species and E coli in two sets of blood cultures. Yeast species are in the urine culture. The ultrasound of the testicle demonstrated mixed echogenic debris filled heterogeneous intrascrotal material. Individual testicles are difficult to visualize. ASSESSMENT AND DISCUSSION: Type 2 diabetes, hypertension, peripheral vascular disease, and previous CVAs with dementia. Acute onset of fever, vomiting with Escherichia coli bacteremia, and those areas of fistulous opening in the right groin which appeared to communicate with the scrotum and they are draining purulent exudate. I am still concerned of possibility of orchiepididymitis with his scrotal abscess which is draining towards the right groin region. We will submit cultures from the abscess by expressing the area. May need a needle aspirate. The urologist has evaluated the patient and has at this point not yet recommended any further intervention. Job ID: [id number]
[2019-03-02] MEDS: Simvastatin 20 MG TAB PO SCH (20:42)
--- NOTE | 2019-03-02 21:43 | PDOC.EVN ---
Event Note - Event Note Event Note: Notified of patient having high BP of 183/99 approx 2 hrs ago. Patient asymptomatic. Hx of HTN, on Lisinopril 2.5 mg PO daily at home. In light of ARF we will not resume home medication. His BP has been in 110s systolic. Advised repeat BP to ensure truly elevated. Repeat systolic of 149. Continue to monitor and notify if >160 systolic and/or becomes symptomatic.
[2019-03-03] MEDS: Sodium Chloride 0.9% 1,000 ML IV SCH (02:03)
[2019-03-03 04:34] LABS: Anion Gap 14 mmol/L (10-20); BUN (Urea Nitrogen) 86 mg/dL (8.4-25.7); Calc. Creatinine Clearance 13 mL/min (70-130); Carbon Dioxide 27 mmol/L (23-31); Chloride 104 mmol/L (98-107); Estimated GFR-MDRD 19; Glucose 215 mg/dL (83-110); Magnesium 1.4 mg/dL (1.6-2.6); Potassium 3.1 mmol/L (3.5-5.1); Sodium 142 mmol/L (136-145)
[2019-03-03 04:37] LABS: Band 1 % (5-11); Hemoglobin 7.2 g/dL (14.0-18.0); Lymphocytes 10 % (21-51); MDiff Complete? YES; Mean Corpuscular HGB CONC 32.6 g/dL (32.0-36.0); Mean Corpuscular Hemoglobin 27.8 pg (27.0-31.0); Mean Corpuscular Volume 85.3 fL (78.0-98.0); Mean Platelet Volume 8.8 fL (7.4-10.4); Monocytes 5 % (0-10); Neutrophil 84 % (42-75); Platelet Count 241 thou/uL (130-400); Platelet Morphology Comment Appears Adequate; RBC Distribution Width 16.2 % (11.5-14.5); White Blood Cell (WBC) Count 13.6 thou/uL (4.8-10.8)
[2019-03-03] MEDS: Insulin Regular 300 UNITS/3 ML VIAL SC PRN (06:20)
[2019-03-03] MEDS: MEROPENEM 1 GM/50 ML 1 GM in Premix Bag 1 BAG IVPB SCH ×3 (06:21→22:19)
[2019-03-03] MEDS: Aspirin Chewable 81 MG TAB PO SCH (08:18)
[2019-03-03] MEDS ORDERED: Magnesium Sulfate 4 GM in Sodium Chloride 0.9% 250 ML 250 ML IVPB SCH (08:30)
--- NOTE | 2019-03-03 11:32 | PRG ---
DATE OF SERVICE: 03/03/2019 SUBJECTIVE: This 83-year-old admitted with acute mental status change and generalized weakness. Nephrology is seeing patient for acute kidney injury and electrolyte derangements. The patient who is more awake today, reports feeling cold and weak. He continues to have loose stools. He is beginning to tolerate some oral intake, especially liquids. There has been no nausea and vomiting. OBJECTIVE: VITAL SIGNS: Temperature 97.6, pulse 80, respiratory rate 16, SpO2 of 96% on room air. Blood pressure 111/54. GENERAL: Chronically ill-looking elderly male, in no obvious distress. Afebrile. Anicteric but fatigued. HEENT: Normocephalic, atraumatic. Oral mucosa is moist. Pupils are reacting to light. RESPIRATORY: Fair air entry bilaterally with some transmitted sounds. CARDIOVASCULAR: Regular rhythm and rate with normal heart sounds 1 and 2. GI: Abdomen is flat, soft, nontender with normal bowel sounds. Urogenital: Lou catheter is in place. Large scrotal swelling noted. NEUROLOGIC: Conscious and alert, oriented to person and place. Some memory lapse is noted. Cranial nerves 2 through 12 are intact. DIAGNOSTIC DATA: CBC showed WBC count of 13.6, hemoglobin of 7.2, MCV of 85.3, platelet of 241. BMP shows sodium 142, potassium 3.1, chloride 104, CO2 of 27, BUN 86, creatinine 3.77, glucose 215, calcium 7.0. Magnesium is 1.4. 25-hydroxyvitamin D is 7.9. PTH is 354.1. C diff was negative. ASSESSMENT: 1. Acute kidney injury: Most likely due to prerenal from dehydration from gastrointestinal losses and poor intake. Creatinine is trending down, worse with IV fluid. The patient, however, continues to have loose stool and oral intake remained poor. 2. Moderate to severe dehydration: From gastrointestinal losses and poor intake. The patient is still having loose stool. 3. Frequent loose stools: Etiology is unclear. C. diff toxin assay was negative. 4. Metabolic acidosis: Due to sepsis and gastrointestinal losses. Improved. 5. Severe vitamin D deficiency. 6. Hypocalcemia: Due to vitamin D deficiency. 7. Hypokalemia: Due to poor intake and gastrointestinal losses. 8. Hypomagnesemia: Poor intake and gastrointestinal losses. PLAN: 1. We will discontinue bicarb containing fluid and continue IV fluid treatment with normal saline. 2. We will replete serum magnesium with magnesium sulfate. 3. We will also replete serum potassium with potassium chloride. 4. We will also start vitamin D supplementation. 5. We will also get iron chemistry as patient has anemia. 6. Acute anemia with hemoglobin dropping from 10 to 7.2. This is thought to be due to correction of hemoconcentration. 7. We will start the patient on oral dietary supplementation. 8. We will also start the patient on loperamide. 9. We will also get stool culture panel. Job ID: [id number]
[2019-03-03] MEDS: Lactated Ringer's 1,000 ML IV SCH (13:17)
--- NOTE | 2019-03-03 14:46 | PDOC.PN ---
- Subjective Encounter Start Date: 03/03/19 Encounter Start Time: 14:44 Patient seen and examined, no new issues or complaints, all questions answered. - Objective Resuscitation Status - Order Detail: 03/01/19 05:24 Resuscitation Status Routine Resuscitation Status: DNAR: NO Resuscitation Discussed with: out of hospital DNR as well as paperwork in file Vital Signs & Weight: Vital Signs (12 hours) Temp Pulse Resp BP Pulse Ox 03/03/19 12:00 98.0 F 76 16 118/63 100 03/03/19 08:00 97.6 F 80 16 111/54 L 96 03/03/19 04:00 97.9 F 79 16 106/58 L 100 Weight Admit Weight 134 lb 8 oz Weight 138 lb 7.205 oz Most Recent Monitor Data Heart Rate from ECG 85 NIBP 122/61 NIBP BP-Mean 81 Respiration from ECG 13 SpO2 100 I&O: 03/02/19 03/03/19 03/04/19 06:59 06:59 06:59 Intake Total 2639 3939 960 Output Total 1070 1025 Balance 1569 2914 960 Result Diagrams: 03/03/19 03:55 03/03/19 03:55 Additional Labs: Accuchecks 03/03/19 03/02/19 03/02/19 12:11 20:10 15:46 POC Glucose 158 H 199 H 149 H Phys Exam - Physical Examination Constitutional: NAD HEENT: PERRLA, moist MMs, sclera anicteric Neck: no nodes, no JVD, supple Respiratory: no wheezing, no rales, no rhonchi Cardiovascular: RRR, no significant murmur, no rub Gastrointestinal: soft, non-tender, no distention, positive bowel sounds Musculoskeletal: pulses present, edema present Dx/Plan (1) ANGELA (acute kidney injury) Code(s): N17.9 - ACUTE KIDNEY FAILURE, UNSPECIFIED Status: Acute (2) Bacteremia Code(s): R78.81 - BACTEREMIA Status: Acute (3) Physical deconditioning Code(s): R53.81 - OTHER MALAISE Status: Acute (4) Sepsis Code(s): A41.9 - SEPSIS, UNSPECIFIED ORGANISM Status: Acute (5) Protein-calorie malnutrition, moderate Code(s): E44.0 - MODERATE PROTEIN-CALORIE MALNUTRITION Status: Chronic - Plan * ID clearance pending, considering drainage? Urology stated no surgical intervention, further work up from ID perspective currently pending and not done. * continue current plan of care, no changes, will await for infectious work up to be completed * case and plan d/w patient at length, he understood and agreed with this plan.
[2019-03-03] MEDS: Calcium Carbonate + Vit D 1 TAB PO SCH (17:14)
[2019-03-03 18:14] LABS: Anion Gap 13 mmol/L (10-20); BUN (Urea Nitrogen) 69 mg/dL (8.4-25.7); Calc. Creatinine Clearance 14 mL/min (70-130); Carbon Dioxide 28 mmol/L (23-31); Chloride 104 mmol/L (98-107); Estimated GFR-MDRD 20; Glucose 124 mg/dL (83-110); Potassium 3.9 mmol/L (3.5-5.1); Sodium 141 mmol/L (136-145)
[2019-03-03] MEDS: Simvastatin 20 MG TAB PO SCH (21:07)
[2019-03-04] MEDS: Lactated Ringer's 1,000 ML IV SCH ×7 (00:21→21:32)
[2019-03-04] MEDS: MEROPENEM 1 GM/50 ML 1 GM in Premix Bag 1 BAG IVPB SCH ×3 (05:22→21:36)
[2019-03-04 05:47] LABS: #Eosinphils 0.3 thou/uL (0.0-0.7); #Lymphocytes 1.2 thou/uL (1.20-3.40); #Monocytes 0.5 thou/uL (0.11-0.59); #Neutrophils 8.1 thou/uL (1.40-6.50); %Basophils 0.1 % (0.0-1.0); %Eosinophils 3.4 % (0.0-10.0); %Lymphocytes 11.6 % (21.0-51.0); %Monocytes 4.9 % (0.0-10.0); Hemoglobin 7.1 g/dL (14.0-18.0); Mean Corpuscular HGB CONC 32.5 g/dL (32.0-36.0); Mean Corpuscular Hemoglobin 27.8 pg (27.0-31.0); Mean Corpuscular Volume 85.5 fL (78.0-98.0); Mean Platelet Volume 8.9 fL (7.4-10.4); Platelet Count 225 thou/uL (130-400); RBC Distribution Width 16.2 % (11.5-14.5); Red Blood Cell (RBC) Count 2.54 mill/uL (4.70-6.10); White Blood Cell (WBC) Count 10.2 thou/uL (4.8-10.8)
[2019-03-04 06:07] LABS: Iron 20 ug/dL (65-175); Iron Binding Capacity, Total 69 mcg/dL (261-462)
[2019-03-04 06:11] LABS: Albumin 1.9 g/dL (3.4-4.8); Anion Gap 9 mmol/L (10-20); BUN (Urea Nitrogen) 65 mg/dL (8.4-25.7); Calc. Creatinine Clearance 15 mL/min (70-130); Calcium 7.3 mg/dL (7.8-10.44); Carbon Dioxide 30 mmol/L (23-31); Chloride 104 mmol/L (98-107); Estimated GFR-MDRD 22; Glucose 136 mg/dL (83-110); Iron Binding Capacity, Total 70 mcg/dL (261-462); Phosphorus 2.1 mg/dL (2.3-4.7); Potassium 3.4 mmol/L (3.5-5.1); Sodium 140 mmol/L (136-145)
[2019-03-04] MEDS: Calcium Carbonate + Vit D 1 TAB PO SCH ×2 (08:54→17:01)
[2019-03-04] MEDS: Aspirin Chewable 81 MG TAB PO SCH (08:54)
[2019-03-04] MEDS ORDERED: Fluconazole 100 MG TAB PO SCH (09:30)
--- NOTE | 2019-03-04 10:49 | PDOC.PN ---
- Subjective Encounter Start Date: 03/04/19 Encounter Start Time: 10:45 Patient seen and examined, family at bedside, no new issues or com plaints, all questions answered. - Objective Resuscitation Status - Order Detail: 03/01/19 05:24 Resuscitation Status Routine Resuscitation Status: DNAR: NO Resuscitation Discussed with: out of hospital DNR as well as paperwork in file Vital Signs & Weight: Vital Signs (12 hours) Temp Pulse Resp BP Pulse Ox 03/04/19 08:54 93 L 03/04/19 08:14 97.5 F L 84 14 136/63 93 L Weight Admit Weight 134 lb 8 oz Weight 136 lb 14.513 oz Most Recent Monitor Data Heart Rate from ECG 85 NIBP 122/61 NIBP BP-Mean 81 Respiration from ECG 13 SpO2 100 I&O: 03/03/19 03/04/19 03/05/19 06:59 06:59 06:59 Intake Total 3939 2400 Output Total 1025 1400 Balance 2914 1000 Result Diagrams: 03/04/19 05:30 03/04/19 05:30 Additional Labs: Accuchecks 03/03/19 03/03/19 03/03/19 20:02 15:58 12:11 POC Glucose 190 H 81 158 H Phys Exam - Physical Examination Constitutional: NAD HEENT: PERRLA, moist MMs, sclera anicteric Neck: no nodes, no JVD, supple Respiratory: no wheezing, no rales, no rhonchi Cardiovascular: RRR, no rub systolic ejection murmur Gastrointestinal: soft, non-tender, no distention, positive bowel sounds scrotal edema Musculoskeletal: pulses present, edema present Dx/Plan (1) ANGELA (acute kidney injury) Code(s): N17.9 - ACUTE KIDNEY FAILURE, UNSPECIFIED Status: Acute (2) Bacteremia Code(s): R78.81 - BACTEREMIA Status: Acute (3) Physical deconditioning Code(s): R53.81 - OTHER MALAISE Status: Acute (4) Sepsis Code(s): A41.9 - SEPSIS, UNSPECIFIED ORGANISM Status: Acute (5) Protein-calorie malnutrition, moderate Code(s): E44.0 - MODERATE PROTEIN-CALORIE MALNUTRITION Status: Chronic - Plan * yeast in wound culture, will start diflucan * cont abx for E.coli bacteremia, repeat blood cx today * iron deficiency anemia, but will avoid IV iron given bacteremia * cont current plan of care for now * patient slowly is improving, possible DC in 24-48hrs depending on condition and subspecialists input * daughter at bedside, case d/w daughter at length, as well as patient, they understood and agreed with this plan
[2019-03-04] MEDS: Insulin Regular 300 UNITS/3 ML VIAL SC PRN (11:54)
[2019-03-04] MEDS ORDERED: Iron, Sodium Ferric Gluconate 250 MG in Sodium Chloride 0.9% 100 ML IVPB SCH (18:30)
--- NOTE | 2019-03-04 18:30 | PRG ---
DATE OF SERVICE: 03/04/2019 SUBJECTIVE: Elderly male, who is being followed up for acute kidney injury and electrolyte derangements. Loose stools have subsided. The patient is more awake and conversational, but oral intake remained poor. There has been no nausea or vomiting. OBJECTIVE: VITAL SIGNS: Temperature 98.5, pulse 79, respiratory rate 16, SpO2 of 96% on room air, blood pressure 151/70. GENERAL: Chronically ill-looking elderly male, in no distress. Afebrile. Anicteric. Acyanotic. HEENT: Normocephalic, atraumatic. Oral mucosa is moist. Pupils are reacting to light. CARDIOVASCULAR: Regular rhythm and rate with normal heart sounds 1 and 2. RESPIRATORY: Fair air entry bilaterally with no obvious crackle or rhonchi. GI: Abdomen is full, soft, nontender, nondistended with normal bowel sounds. NEUROLOGIC: Conscious and alert. Oriented to person, place, and time. Some memory lapse is noted. Cranial nerves 2 through 12 are intact. EXTREMITIES: Moving all extremities. No obvious edema appreciated. DIAGNOSTIC DATA: Renal function panel showed sodium 140, potassium 3.4, chloride 104, CO2 of 30, BUN 65, creatinine 3.25, glucose 136, calcium 7.3, phosphorus 2.1, albumin 1.9. Iron chemistry showed serum iron 20, TIBC 69, saturation 29, ferritin 262.5. PTH intact is 354. Vitamin D is 7.9. CBC showed WBC count of 10.2, hemoglobin of 7.1, platelets of 225. ASSESSMENT: 1. Acute kidney injury, most likely due to prerenal etiology from dehydration due to GI losses and poor oral intake. Creatinine is trending down with IV fluids. Oral intake remains suboptimal, though frequent loose stool is improving. 2. [id number] dehydration from gastrointestinal losses. 3. Severe protein calorie malnutrition. 4. Metabolic acidosis due to sepsis and gastrointestinal losses, resolved. 5. Severe vitamin D deficiency. 6. Hypocalcemia. 7. Hypokalemia. 8. Hypomagnesemia. PLAN: 1. We will decrease IV fluid therapy from 200 mL/h to 125. 2. We will start potassium supplementation. 3. We will also start IV iron therapy. 4. Further treatment as per primary attending. Job ID: [id number]
[2019-03-05] MEDS: MEROPENEM 1 GM/50 ML 1 GM in Premix Bag 1 BAG IVPB SCH ×2 (05:05→13:46)
[2019-03-05] MEDS: Lactated Ringer's 1,000 ML IV SCH ×2 (05:07→13:46)
[2019-03-05 05:11] LABS: Hemoglobin 7.1 g/dL (14.0-18.0); Mean Corpuscular HGB CONC 31.6 g/dL (32.0-36.0); Mean Corpuscular Hemoglobin 27.8 pg (27.0-31.0); Mean Corpuscular Volume 88.1 fL (78.0-98.0); Mean Platelet Volume 9.1 fL (7.4-10.4); Platelet Count 211 thou/uL (130-400); Red Blood Cell (RBC) Count 2.57 mill/uL (4.70-6.10); White Blood Cell (WBC) Count 14.1 thou/uL (4.8-10.8)
[2019-03-05 05:30] LABS: Albumin 1.9 g/dL (3.4-4.8); Anion Gap 11 mmol/L (10-20); BUN (Urea Nitrogen) 52 mg/dL (8.4-25.7); BUN/Creatinine Ratio 17.45; Calc. Creatinine Clearance 17 mL/min (70-130); Calcium 7.2 mg/dL (7.8-10.44); Carbon Dioxide 26 mmol/L (23-31); Chloride 107 mmol/L (98-107); Estimated GFR-MDRD 25; Glucose 158 mg/dL (83-110); Magnesium 1.4 mg/dL (1.6-2.6); Potassium 3.6 mmol/L (3.5-5.1); Sodium 140 mmol/L (136-145)
[2019-03-05 05:38] LABS: Band 6 % (5-11); Eosinophils 3 % (0-10); Lymphocytes 2 % (21-51); MDiff Complete? YES; Neutrophil 89 % (42-75); Platelet Morphology Comment Appears Adequate; Target Cells SLIGHT = 2-5 cells (100X) (0-1/hpf)
[2019-03-05 05:42] LABS: Phosphorus 1.7 mg/dL (2.3-4.7)
[2019-03-05] MEDS: PHOS-NAK 1 PKT PACK PO SCH ×2 (06:17→14:31)
[2019-03-05] MEDS: Calcium Carbonate + Vit D 1 TAB PO SCH ×2 (08:40→16:28)
[2019-03-05] MEDS: Aspirin Chewable 81 MG TAB PO SCH (08:40)
[2019-03-05] MEDS: Fluconazole 100 MG TAB PO SCH (08:40)
--- NOTE | 2019-03-05 11:35 | PDOC.PN ---
- Subjective Encounter Start Date: 03/05/19 Encounter Start Time: 11:34 Patient seen and examined, no family at bedside, no major issues overnight. - Objective Resuscitation Status - Order Detail: 03/01/19 05:24 Resuscitation Status Routine Resuscitation Status: DNAR: NO Resuscitation Discussed with: out of hospital DNR as well as paperwork in file Vital Signs & Weight: Vital Signs (12 hours) Temp Pulse Resp BP Pulse Ox 03/05/19 08:00 99.0 F 80 20 115/59 L 96 Weight Admit Weight 134 lb 8 oz Weight 138 lb 7.205 oz Most Recent Monitor Data Heart Rate from ECG 85 NIBP 122/61 NIBP BP-Mean 81 Respiration from ECG 13 SpO2 100 I&O: 03/04/19 03/05/19 03/06/19 06:59 06:59 06:59 Intake Total 2400 5115 2116 Output Total 1400 1075 Balance 1000 4040 2116 Result Diagrams: 03/05/19 05:00 03/05/19 05:00 Additional Labs: Accuchecks 03/05/19 03/04/19 03/04/19 05:00 19:45 17:00 POC Glucose 181 H 158 H 102 03/04/19 11:17 POC Glucose 234 H Phys Exam - Physical Examination Constitutional: NAD HEENT: PERRLA, moist MMs, sclera anicteric Neck: no nodes, no JVD Respiratory: no wheezing, no rales, no rhonchi Cardiovascular: RRR, no significant murmur, no rub Gastrointestinal: soft, non-tender, no distention, positive bowel sounds scrotal edema Musculoskeletal: pulses present, edema present (trace) Dx/Plan (1) ANGELA (acute kidney injury) Code(s): N17.9 - ACUTE KIDNEY FAILURE, UNSPECIFIED Status: Acute (2) Bacteremia Code(s): R78.81 - BACTEREMIA Status: Acute (3) Physical deconditioning Code(s): R53.81 - OTHER MALAISE Status: Acute (4) Sepsis Code(s): A41.9 - SEPSIS, UNSPECIFIED ORGANISM Status: Acute (5) Protein-calorie malnutrition, moderate Code(s): E44.0 - MODERATE PROTEIN-CALORIE MALNUTRITION Status: Chronic - Plan * WBC up, started on antifungal yesterday * repeat cultures pending * monitor for now * repeat labs in AM * DC plans once WBC trending down and cultures negative * Lengthy discussion held with daughter yesterday, they would like the patient to have palliative care once patient is discharged * case and plan d/w patient at length, he understood and agreed with this plan.
[2019-03-05] MEDS: Insulin Regular 300 UNITS/3 ML VIAL SC PRN (16:34)
[2019-03-05] MEDS ORDERED: Magnesium Sulfate 4 GM in Sodium Chloride 0.9% 250 ML 250 ML IVPB SCH (19:00)
--- NOTE | 2019-03-05 19:25 | PRG ---
DATE OF SERVICE: 03/05/2019 SUBJECTIVE: An 83-year-old male admitted with acute mental status change and generalized weakness. Nephrology consult was requested for acute kidney injury and electrolyte derangement. The patient is more awake and conversational. He complains of excessive feeling of cold. Oral intake is improving that remains suboptimal though. No fever, chest pain, nausea, or vomiting. Diarrhea has subsided. OBJECTIVE: VITAL SIGNS: Temperature 97.4, pulse 87, respiratory rate 18, SpO2 of 98% on room air, and blood pressure 138/65. GENERAL: Elderly male, chronically ill-looking, in no obvious distress. Afebrile. Anicteric. HEENT: Normocephalic, atraumatic. Pupils are reacting to light. Oral mucosa is moist. CARDIOVASCULAR: Regular rhythm and rate with normal heart sounds 1 and 2. RESPIRATORY: Good air entry bilaterally with no obvious crackle or rhonchi. GI: Abdomen is full, soft, nontender, nondistended with normal bowel sounds. EXTREMITIES: No obvious edema appreciated. NEUROLOGIC: Conscious and alert, oriented x3. Conversational. Cranial nerves 2 through 12 are intact. The patient moves all extremities. DIAGNOSTIC DATA: CBC showed WBC count of 14, hemoglobin of 7.1, and platelet of 211. Renal function panel showed sodium 140, potassium 3.6, chloride 107, CO2 of 26, BUN 52, creatinine 2.98, glucose 158, calcium 7.2, phosphorus 1.7, albumin 1.9. Magnesium is 1.4. ASSESSMENT: 1. Acute kidney injury: Due to hemodynamic factors related to dehydration from poor oral intake and increased gastrointestinal losses. 2. Metabolic acidosis improved. 3. Hypomagnesemia. 4. Hypophosphatemia. 5. Hypocalcemia. 6. Protein-calorie malnutrition. PLAN: 1. Continue IV fluid therapy with Ringer lactate at 125 mL/hour. 2. Replete serum magnesium with magnesium sulfate 4 g. 3. Replete potassium and phosphorus with potassium phosphate. 4. Continue to monitor electrolytes and renal function and replete as needed. Job ID: [id number]
[2019-03-05] MEDS ORDERED: Potassium Phosphate 15 MMOL, Magnesium Sulfate 4 GM in Sodium Chloride 0.9% 250 ML 250 ML IVPB SCH (19:30)
[2019-03-06] MEDS: PHOS-NAK 1 PKT PACK PO SCH ×4 (00:34→22:21)
[2019-03-06] MEDS: MEROPENEM 1 GM/50 ML 1 GM in Premix Bag 1 BAG IVPB SCH ×4 (00:35→22:20)
[2019-03-06] MEDS: Lactated Ringer's 1,000 ML IV SCH ×3 (00:38→17:11)
[2019-03-06 05:29] LABS: Anion Gap 11 mmol/L (10-20); BUN (Urea Nitrogen) 46 mg/dL (8.4-25.7); BUN/Creatinine Ratio 16.08; Calc. Creatinine Clearance 18 mL/min (70-130); Calcium 7.5 mg/dL (7.8-10.44); Carbon Dioxide 26 mmol/L (23-31); Chloride 106 mmol/L (98-107); Estimated GFR-MDRD 26; Glucose 101 mg/dL (83-110); Phosphorus 2.9 mg/dL (2.3-4.7); Potassium 3.8 mmol/L (3.5-5.1); Sodium 139 mmol/L (136-145)
--- NOTE | 2019-03-06 08:04 | PDOC.PN ---
- Subjective Encounter Start Date: 03/06/19 Encounter Start Time: 08:02 Patient seen and examined, no new issues or complaints. - Objective Resuscitation Status - Order Detail: 03/01/19 05:24 Resuscitation Status Routine Resuscitation Status: DNAR: NO Resuscitation Discussed with: out of hospital DNR as well as paperwork in file Vital Signs & Weight: Vital Signs (12 hours) Temp Pulse Resp BP Pulse Ox 03/06/19 04:48 97.7 F 85 18 150/78 H 94 L 03/06/19 00:00 97.8 F 86 18 145/73 H 92 L Weight Admit Weight 134 lb 8 oz Weight 188 lb 6.4 oz Most Recent Monitor Data Heart Rate from ECG 85 NIBP 122/61 NIBP BP-Mean 81 Respiration from ECG 13 SpO2 100 I&O: 03/05/19 03/06/19 03/07/19 06:59 06:59 06:59 Intake Total 5115 5136 Output Total 1075 1075 Balance 4040 4061 Result Diagrams: 03/05/19 05:00 03/06/19 04:43 Additional Labs: Accuchecks 03/06/19 03/05/19 03/05/19 05:15 20:00 16:18 POC Glucose 108 193 H 198 H 03/05/19 12:00 POC Glucose 170 H Phys Exam - Physical Examination Constitutional: NAD HEENT: PERRLA, moist MMs, sclera anicteric Neck: no nodes, no JVD, supple Respiratory: no wheezing, no rales, no rhonchi Cardiovascular: RRR, no significant murmur, no rub Gastrointestinal: soft, non-tender, no distention, positive bowel sounds scrotal edema Musculoskeletal: pulses present, edema present (trace) Dx/Plan (1) ANGELA (acute kidney injury) Code(s): N17.9 - ACUTE KIDNEY FAILURE, UNSPECIFIED Status: Acute (2) Bacteremia Code(s): R78.81 - BACTEREMIA Status: Acute (3) Physical deconditioning Code(s): R53.81 - OTHER MALAISE Status: Acute (4) Sepsis Code(s): A41.9 - SEPSIS, UNSPECIFIED ORGANISM Status: Acute (5) Protein-calorie malnutrition, moderate Code(s): E44.0 - MODERATE PROTEIN-CALORIE MALNUTRITION Status: Chronic - Plan * MDR e.coli in sound and blood, on merrem, this is merrem sensitive * renal and ID following * will need IV abx arranged, will await ID input to see if patient will get abx and ID office or if patient will need to have HHC set up * will also get PT/OT evaluation, patient is already staying at [facility]
[2019-03-06] MEDS: Calcium Carbonate + Vit D 1 TAB PO SCH ×2 (08:14→16:50)
[2019-03-06] MEDS: Fluconazole 100 MG TAB PO SCH (08:14)
[2019-03-06] MEDS: Aspirin Chewable 81 MG TAB PO SCH (08:14)
[2019-03-06] MEDS: Insulin Regular 300 UNITS/3 ML VIAL SC PRN (16:50)
--- NOTE | 2019-03-06 18:06 | PRG ---
DATE OF SERVICE: 03/06/2019 SUBJECTIVE: The patient is awake, more alert, feeling better. He is oriented times self and place. He has no respiratory symptoms, no abdominal pain, and less scrotal pain. OBJECTIVE: VITAL SIGNS: Normal. GENITOURINARY: Scrotum appears to be less swollen and a bit softer than before. Still with drainage spots in the right groin. LUNGS: Clear. HEART: S1 and S2 regular rate. ABDOMEN: Soft and not distended. LABORATORY DATA: White cell count 14.1, hemoglobin 7.1, and platelets 211. Sodium 139 and creatinine 2.86, which is better from admission. The cultures from the groin abscess included Esther krusei. E. coli with the same susceptibility profile is the one obtained from the blood cultures. Urine culture with yeast species. ASSESSMENT AND DISCUSSION: Type 2 diabetes, hypertension, peripheral vascular disease, previous cerebrovascular accidents with dementia, fever, vomiting, and Escherichia coli bacteremia, and there was fistulous openings in the right groin with purulent drainage, which yielded the same Escherichia coli. 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 Peripherally inserted central catheter line placement and treat with Invanz for a protracted period of time. Followup imaging studies of the scrotum contents. Job ID: [id number]
[2019-03-06] MEDS: Albumin 25% 25 GM/100 ML BOT IVPB SCH (18:27)
--- NOTE | 2019-03-06 18:27 | PRG ---
DATE OF SERVICE: 03/06/2019 SUBJECTIVE: An 83-year-old male, being followed up for acute kidney injury. The patient continues to complain of feeling cold. Otherwise, has no complaints. Oral intake is still suboptimal, but improving. Denied shortness of breath, cough, or chest pain. OBJECTIVE: VITAL SIGNS: Temperature 98.2, pulse 83, respiratory rate 18, SpO2 of 100% on room air, blood pressure 136/62. GENERAL: Elderly male, in no obvious distress. Chronically ill looking. Afebrile. Anicteric. Acyanotic. HEENT: Normocephalic, atraumatic. Oral mucosa is moist. CARDIOVASCULAR: Regular rhythm and rate with normal heart sounds 1 and 2. RESPIRATORY: Fair air entry bilaterally with no obvious crackle or rhonchi. GI: Full, soft, nontender, nondistended with normal bowel sounds. EXTREMITIES: Mild bilateral leg and elbow edema noted. NEUROLOGIC: Conscious and alert, oriented x3 with appropriate mental status and conversation. DIAGNOSTIC DATA: Renal function panel showed sodium 139, potassium 3.8, CO2 of 26, chloride 106, BUN 46, creatinine 2.86, glucose 101, calcium 7.5, phosphorus 2.9, albumin 2.0. ASSESSMENT AND PLAN: 1. Acute kidney injury: Due to hemodynamic factors related to dehydration, poor oral intake, and increased gastrointestinal losses. The patient had diarrhea earlier on during this hospitalization and may have been having diarrhea and nausea in the shelter prior to presentation. Creatinine has gone down from above 4 to 2.8. He now has edema. We will discontinue crystalline. We will start the patient on colloids for a day and observe renal function. 2. Metabolic acidosis: Resolved. 3. Electrolyte derangements: Hypomagnesemia, hypophosphatemia, and hypokalemia. Repleted. 4. Vitamin D with hypocalcemia: The patient is getting vitamin D supplementation with calcium. 5. Protein-calorie malnutrition, severe, with hypoalbuminemia. 6. We will get repeat renal function in the morning. Job ID: [id number]
[2019-03-07] MEDS: Albumin 25% 25 GM/100 ML BOT IVPB SCH ×2 (02:19→10:52)
[2019-03-07] MEDS: PHOS-NAK 1 PKT PACK PO SCH ×3 (05:09→20:00)
[2019-03-07] MEDS: MEROPENEM 1 GM/50 ML 1 GM in Premix Bag 1 BAG IVPB SCH ×3 (05:10→22:43)
[2019-03-07 07:49] LABS: #Eosinphils 0.4 thou/uL (0.0-0.7); #Lymphocytes 1.3 thou/uL (1.20-3.40); #Monocytes 0.5 thou/uL (0.11-0.59); #Neutrophils 7.7 thou/uL (1.40-6.50); %Basophils 0.2 % (0.0-1.0); %Eosinophils 4.2 % (0.0-10.0); %Lymphocytes 13.3 % (21.0-51.0); %Monocytes 4.6 % (0.0-10.0); %Neutrophils 77.7 % (42.0-75.0); Hemoglobin 7.3 g/dL (14.0-18.0); Mean Corpuscular HGB CONC 30.9 g/dL (32.0-36.0); Mean Corpuscular Hemoglobin 26.9 pg (27.0-31.0); Mean Corpuscular Volume 87.3 fL (78.0-98.0); Mean Platelet Volume 9.3 fL (7.4-10.4); Platelet Count 207 thou/uL (130-400); RBC Distribution Width 15.7 % (11.5-14.5); Red Blood Cell (RBC) Count 2.72 mill/uL (4.70-6.10); White Blood Cell (WBC) Count 9.9 thou/uL (4.8-10.8)
[2019-03-07 07:55] LABS: Albumin 2.6 g/dL (3.4-4.8); Anion Gap 12 mmol/L (10-20); BUN (Urea Nitrogen) 40 mg/dL (8.4-25.7); BUN/Creatinine Ratio 14.13; Calc. Creatinine Clearance 24 mL/min (70-130); Calcium 7.6 mg/dL (7.8-10.44); Carbon Dioxide 26 mmol/L (23-31); Chloride 107 mmol/L (98-107); Estimated GFR-MDRD 26; Glucose 101 mg/dL (83-110); Phosphorus 2.9 mg/dL (2.3-4.7); Potassium 3.6 mmol/L (3.5-5.1); Sodium 141 mmol/L (136-145)
[2019-03-07] MEDS: Aspirin Chewable 81 MG TAB PO SCH (08:36)
[2019-03-07] MEDS: Fluconazole 100 MG TAB PO SCH (08:41)
[2019-03-07] MEDS: Calcium Carbonate + Vit D 1 TAB PO SCH ×2 (08:41→17:29)
--- NOTE | 2019-03-07 11:35 | SPC ---
Ultrasound and Fluoroscopic guidedleftupper extremity single lumenPICC placement: 02/21/2019 HISTORY: Need for central vascular access. FINDINGS: Informed consent obtained prior to the procedure. Left antecubital fossa prepped and draped in normal sterile fashion. Skin overlying thebrachialvein anesthetized with 1% buffered lidocaine. With direct sonographic cain nce, vascular access is obtained via the brachialvein and an 0.018in wire was advanced to the SVC. In travascular length is calculated at 40 cm and of the PICC is cut accordingly. Needle is removed and replaced with a peel-away sheath. The PICC was advanced over the wire. Wire and peel-away sheath were removed. The tip of the catheter overlies the SVC. The port flushes well and the catheter is ready for use. Exposure data: 0 minutes of fluoroscopic time 77 mGy per centimeter squared IMPRESSION: Successful ultrasound guided placement of a leftupper extremity PICC.
--- NOTE | 2019-03-07 14:05 | PDOC.PN ---
- Subjective Encounter Start Date: 03/07/19 Encounter Start Time: 14:03 Subjective: feels Ok but c/o his back being sore -: PIC placed earlier.Now he is hungry. -: No New events.RN reports that he ate his breakfast - Objective Resuscitation Status - Order Detail: 03/01/19 05:24 Resuscitation Status Routine Resuscitation Status: DNAR: NO Resuscitation Discussed with: out of hospital DNR as well as paperwork in file MAR Reviewed: Yes Vital Signs & Weight: Vital Signs (12 hours) Temp Pulse Resp BP Pulse Ox 03/07/19 08:26 98.2 F 70 16 144/66 H 92 L Weight Admit Weight 134 lb 8 oz Weight 186 lb 8 oz Most Recent Monitor Data Heart Rate from ECG 85 NIBP 122/61 NIBP BP-Mean 81 Respiration from ECG 13 SpO2 100 I&O: 03/06/19 03/07/19 03/08/19 06:59 06:59 06:59 Intake Total 5136 3090 240 Output Total 1075 1175 Balance 4061 1915 240 Result Diagrams: 03/07/19 07:12 03/07/19 07:12 Additional Labs: Accuchecks 03/07/19 03/06/19 03/06/19 05:00 20:00 16:13 POC Glucose 125 H 166 H 208 H Microbiology 03/03/19 10:26 Stool Stool Culture - Final Presumptive Esther albicans 03/03/19 10:26 Stool Campylobacter Antigen Assay - Final 03/03/19 10:26 Stool Shiga Toxin Test - Final 03/02/19 11:17 Stool C. difficile GDH Antigen & Toxins - Final 02/28/19 19:30 Urine ruiz catheter Urine Culture - Final Yeast species 02/28/19 18:21 Venous blood - Left Arm Blood Culture - Final Escherichia coli 02/28/19 18:05 Venous blood - Right Arm Blood Culture - Final Escherichia coli 03/02/19 16:11 Groin - Abscess Bacterial Culture - Preliminary 03/02/19 16:11 Groin - Abscess Anaerobic Culture - Preliminary Presumptive Esther Krusei Escherichia coli Streptococcus agalactiae Gp. B Laboratory Tests 02/28/19 03/01/19 03/03/19 17:33 03:10 03:55 Creatinine 4.86 H 4.46 H 3.77 H 03/04/19 03/05/19 03/06/19 05:30 05:00 04:43 Creatinine 3.25 H 2.98 H 2.86 H 03/07/19 07:12 Creatinine 2.83 H Phys Exam - Physical Examination Constitutional: NAD HEENT: PERRLA, moist MMs, sclera anicteric, oral pharynx no lesions Neck: no nodes, no JVD, supple, full ROM Respiratory: no wheezing, no rales, no rhonchi, clear to auscultation bilateral Cardiovascular: RRR, no significant murmur Gastrointestinal: soft, non-tender, no distention, positive bowel sounds Scrotal edema and induration.R groin fistula w thich discharge Musculoskeletal: no edema, pulses present Neurological: non-focal, normal sensation, moves all 4 limbs Psychiatric: normal affect Skin: no rash Dx/Plan (1) Sepsis Code(s): A41.9 - SEPSIS, UNSPECIFIED ORGANISM Status: Acute (2) ANGELA (acute kidney injury) Code(s): N17.9 - ACUTE KIDNEY FAILURE, UNSPECIFIED Status: Acute Comment: Improving. nephrology following as well (3) Bacteremia Code(s): R78.81 - BACTEREMIA Status: Acute Comment: E.Coli.Likley source Orchitis/epididymitis with cutaneous fistula (4) Physical deconditioning Code(s): R53.81 - OTHER MALAISE Status: Acute (5) Dyslipidemia Code(s): E78.5 - HYPERLIPIDEMIA, UNSPECIFIED Status: Chronic (6) DM2 (diabetes mellitus, type 2) Status: Chronic Qualifiers: Diabetes mellitus termite control representative insulin use: without chcf use (7) PAD (peripheral artery disease) Code(s): I73.9 - PERIPHERAL VASCULAR DISEASE, UNSPECIFIED Status: Chronic (8) Dementia Code(s): F03.90 - UNSPECIFIED DEMENTIA WITHOUT BEHAVIORAL DISTURBANCE Status: Chronic (9) HTN (hypertension) Code(s): I10 - ESSENTIAL (PRIMARY) HYPERTENSION Status: Chronic (10) Protein-calorie malnutrition, moderate Code(s): E44.0 - MODERATE PROTEIN-CALORIE MALNUTRITION Status: Chronic (11) FRANKY (iron deficiency anemia) Code(s): D50.9 - IRON DEFICIENCY ANEMIA, UNSPECIFIED Status: Chronic - Plan continue antibiotics, PT/OT, out of bed/ambulate, DVT proph w/SCDs Scrotal swelling with H/O Hydrocoele & now w purulent Fistula -: and bacteremia .May need I&D.will discuss w ID -: IV Invanz for protraacted period per ID.PICC placed today -: will await final ID/urology recs. clinically better -: supportive care.Home meds as below.am labs * .monitor lytes and renal Fx * On IV albumin. * Replace IV iron.monitor H/H.no overt bleed Review of Systems - Review of Systems Constitutional: weakness Musculoskeletal: Back Pain Other: limited due to dementia - Medications/Allergies Allergies/Adverse Reactions: Allergies Allergy/AdvReac Type Severity Reaction Status Date / Time No Known Allergies Allergy Verified 03/01/19 01:12 Medications: Current Medications Acetaminophen (Tylenol) 650 mg PO Q4H PRN PRN Reason: Headache/Fever/Mild Pain (1-3) Aspirin (Aspirin Chewable) 81 mg PO DAILY [facility] Last Admin: 03/07/19 08:36 Dose: Not Given Calcium/Vitamin D (Caltrate 600 + Vit D) 1 tab PO BID-[facility] Last Admin: 03/07/19 08:41 Dose: 1 tab Dextrose/Water (Dextrose 50%) 25 gm SLOW IVP PRN PRN PRN Reason: Hypoglycemia Ergocalciferol (Drisdol) 1.25 mg PO Q7DAYS [facility] Fluconazole (Diflucan) 100 mg PO DAILY [facility] Last Admin: 03/07/19 08:41 Dose: 100 mg Glucagon (Glucagon) 1 mg IM PRN PRN PRN Reason: Hypoglycemia Guaifenesin/Dextromethorphan (Robitussin Dm) 15 ml PO Q4H PRN PRN Reason: Cough Dextrose/Water (D5w) 1,000 mls @ 0 mls/hr IV .Q0M PRN PRN Reason: Hypoglycemia Meropenem 1 gm/ Device 50 mls @ 100 mls/hr IVPB Q8HR [facility] Last Admin: 03/07/19 05:10 Dose: 50 mls Insulin Human Regular (Humulin R) 0 units SC .MILD SLIDING SCALE PRN PRN Reason: Mild Correctional Scale Last Admin: 03/06/19 16:50 Dose: 3 unit Insulin Human Regular (Humulin R) 0 units SC .BEDTIME SLIDING SC PRN PRN Reason: Bedtime Correctional Scale Last Admin: 03/01/19 21:55 Dose: 2 unit Loperamide HCl (Imodium) 1 mg PO Q4H PRN PRN Reason: Diarrhea/Loose Stools Last Admin: 03/06/19 20:28 Dose: 1 mg Miscellaneous Medication (Phos-Nak) 1 pkt PO 0600,1400,2200 [facility] Last Admin: 03/07/19 05:09 Dose: 1 pkt Ondansetron HCl (Zofran) 4 mg IVP Q6H PRN PRN Reason: Nausea/Vomiting Pantoprazole Sodium (Protonix) 40 mg PO QPM [facility] Last Admin: 03/06/19 20:28 Dose: 40 mg Senna/Docusate Sodium (Senokot S) 2 tab PO BIDPRN PRN PRN Reason: Constipation Sodium Chloride (Flush - Normal Saline) 10 ml IVF Q12H PRN PRN Reason: Saline Flush Last Admin: 03/06/19 20:29 Dose: 10 ml Zolpidem Tartrate (Ambien) 5 mg PO HSPRN PRN PRN Reason: Insomnia
[2019-03-07] MEDS ORDERED: Iron Sucrose Complex 200 MG in Sodium Chloride 0.9% 250 ML 250 ML IVPB SCH (14:30)
[2019-03-07] MEDS ORDERED: Iron, Sodium Ferric Gluconate 250 MG in Sodium Chloride 0.9% 100 ML IVPB SCH (15:00)
--- NOTE | 2019-03-07 15:51 | PRG ---
DATE OF SERVICE: 03/07/2019 SUBJECTIVE: Reports feeling better. Denies chest pain or shortness of breath. Oral intake is improving, but remains suboptimal. No fever or difficulty urinating. OBJECTIVE: VITAL SIGNS: Temperature 98.2, pulse 70, respiratory rate 16, SpO2 of 92 on room air, and blood pressure is 144/66. GENERAL: Elderly male, in no obvious distress. Afebrile. Anicteric. HEENT: Normocephalic and atraumatic. Oral mucosa is moist. RESPIRATORY: Good air entry bilaterally with no crackle or rhonchi. CARDIOVASCULAR: Regular rhythm and rate with normal heart sounds 1 and 2. GI: Abdomen is full, soft, nontender, and nondistended with normal bowel sounds. EXTREMITIES: Mild bilateral ankle edema as well as elbow edema. Moves all extremities, but weakly. NEUROLOGIC: Conscious, alert, and oriented x3. Cranial nerves 2 through 12 are intact. DIAGNOSTIC DATA: Renal function panel today shows sodium of 141, potassium 3.6, chloride 107, CO2 of 26, BUN 40, creatinine 2.83, glucose 101, and calcium 7.6. Phosphorus 2.9. Albumin 2.6. CBC showed WBC count of 9.9, hemoglobin of 7.3, and platelet of 207. ASSESSMENT AND PLAN: 1. Acute kidney injury: Due to hemodynamic factors related to dehydration, poor oral intake, increased GI losses superimposed with effect from diuretics and TOÑO inhibitor. Acute tubular necrosis cannot be ruled out. Creatinine is down from above 4 to 2.8. Crystalloid was discontinued due to worsening edema and hypoalbuminemia. We will continue colloid and monitor renal function. We will DC colloid if not further improvement in creat. We will avoid any nephrotoxic agent including diuretics and TOÑO inhibitors. 2. Metabolic acidosis: Resolved. 3. Electrolyte derangements: Corrected. These included hypomagnesemia, hypophosphatemia, and hypokalemia. 4. Vitamin D deficiency with hypocalcemia: Continue vitamin D supplementation and calcium. 5. Severe protein-calorie malnutrition with hypoalbuminemia. 6. Iron-deficiency anemia: The patient has received IV iron. We will continue oral supplementation. Job ID: [id number] [facility]
--- NOTE | 2019-03-07 23:30 | HP ---
SUBJECTIVE: Mr. Smiley feeling little better, feels chilled all the time. No headaches. No respiratory symptoms or abdominal pain. OBJECTIVE: VITAL SIGNS: Afebrile. LUNGS: Clear. HEART: S1 and S2. Regular rate. ABDOMEN: Soft. : The scrotal area is softer and less swollen than before. No drainage noted from the groin openings. LABORATORY DATA: White cell count 9.9, hemoglobin 7.3, platelets 207. Creatinine 2.83. Microbiology with Esther albicans, Esther krusei, E coli, group B strep. ASSESSMENT AND DISCUSSION: 1. Type 2 diabetes. 2. Hypertension. 3. Peripheral vascular disease. 4. Previous cerebrovascular accident with dementia. 5. Fever. 6. Vomiting. 7. Escherichia coli bacteremia. 8. Fistulous openings in the right groin with purulent drainage with concern for orchiepididymitis, possible abscess formation. I would at this point continue with the PICC line and treat him for protracted period of time with Invanz for at least 6 weeks and follow up imaging studies of the scrotum. Job ID: [id number]
[2019-03-08] MEDS: MEROPENEM 1 GM/50 ML 1 GM in Premix Bag 1 BAG IVPB SCH ×3 (05:00→20:51)
[2019-03-08] MEDS: PHOS-NAK 1 PKT PACK PO SCH ×2 (05:00→14:11)
[2019-03-08 06:45] LABS: Albumin 2.4 g/dL (3.4-4.8); Anion Gap 15 mmol/L (10-20); BUN (Urea Nitrogen) 36 mg/dL (8.4-25.7); BUN/Creatinine Ratio 12.59; Calc. Creatinine Clearance 23 mL/min (70-130); Calcium 7.7 mg/dL (7.8-10.44); Carbon Dioxide 24 mmol/L (23-31); Chloride 109 mmol/L (98-107); Estimated GFR-MDRD 26; Glucose 97 mg/dL (83-110); Phosphorus 3.5 mg/dL (2.3-4.7); Potassium 4.1 mmol/L (3.5-5.1); Sodium 144 mmol/L (136-145)
[2019-03-08] MEDS: Fluconazole 100 MG TAB PO SCH (08:06)
[2019-03-08] MEDS: Calcium Carbonate + Vit D 1 TAB PO SCH ×2 (08:06→16:40)
[2019-03-08] MEDS: Aspirin Chewable 81 MG TAB PO SCH (08:06)
--- NOTE | 2019-03-08 14:02 | PDOC.PN ---
- Subjective Encounter Start Date: 03/08/19 Encounter Start Time: 14:01 Subjective: "im hungry".. -: does not answer any of the Qs appropriately but says he feels fine - Objective Resuscitation Status - Order Detail: 03/01/19 05:24 Resuscitation Status Routine Resuscitation Status: DNAR: NO Resuscitation Discussed with: out of hospital DNR as well as paperwork in file MAR Reviewed: Yes Vital Signs & Weight: Vital Signs (12 hours) Temp Pulse Resp BP Pulse Ox 03/08/19 11:59 97.8 F 70 18 147/82 H 93 L 03/08/19 08:00 91 L 03/08/19 07:48 97.9 F 73 18 134/76 91 L Weight Admit Weight 134 lb 8 oz Weight 182 lb 2 oz Most Recent Monitor Data Heart Rate from ECG 85 NIBP 122/61 NIBP BP-Mean 81 Respiration from ECG 13 SpO2 100 I&O: 03/07/19 03/08/19 03/09/19 06:59 06:59 06:59 Intake Total 3090 1244 240 Output Total 1175 1700 Balance 1915 -456 240 Result Diagrams: 03/07/19 07:12 03/08/19 05:49 Additional Labs: Accuchecks 03/08/19 03/08/19 03/08/19 11:40 07:19 05:01 POC Glucose 121 H 99 107 03/07/19 03/07/19 03/07/19 23:01 16:53 11:36 POC Glucose 130 H 119 H 132 H Microbiology 03/04/19 21:55 Stool - Liquid Stool Occult Blood (RAKAN) - Final 03/03/19 10:26 Stool Stool Culture - Final Presumptive Esther albicans 03/03/19 10:26 Stool Campylobacter Antigen Assay - Final 03/03/19 10:26 Stool Shiga Toxin Test - Final 03/02/19 16:11 Groin - Abscess Bacterial Culture - Final 03/02/19 16:11 Groin - Abscess Anaerobic Culture - Final Presumptive Esther Krusei Escherichia coli Streptococcus agalactiae Gp. B 03/02/19 11:17 Stool C. difficile GDH Antigen & Toxins - Final 02/28/19 19:30 Urine ruiz catheter Urine Culture - Final Yeast species 02/28/19 18:21 Venous blood - Left Arm Blood Culture - Final Escherichia coli 02/28/19 18:05 Venous blood - Right Arm Blood Culture - Final Escherichia coli Laboratory Tests 02/28/19 03/01/19 03/04/19 17:33 09:44 05:30 Creatinine 4.86 H 4.35 H 3.25 H 03/06/19 03/07/19 03/08/19 04:43 07:12 05:49 Creatinine 2.86 H 2.83 H 2.86 H Phys Exam - Physical Examination Constitutional: NAD HEENT: PERRLA, moist MMs, sclera anicteric, oral pharynx no lesions Neck: no nodes, no JVD, supple, full ROM Respiratory: no wheezing, no rales, no rhonchi, clear to auscultation bilateral Cardiovascular: RRR, no significant murmur, no rub Gastrointestinal: soft, non-tender, no distention, positive bowel sounds Musculoskeletal: no edema, pulses present Neurological: non-focal, normal sensation, moves all 4 limbs Psychiatric: normal affect, A&O x 3 Skin: no rash Dx/Plan (1) Sepsis Code(s): A41.9 - SEPSIS, UNSPECIFIED ORGANISM Status: Acute (2) ANGELA (acute kidney injury) Code(s): N17.9 - ACUTE KIDNEY FAILURE, UNSPECIFIED Status: Acute Comment: Improving. nephrology following as well (3) Bacteremia Code(s): R78.81 - BACTEREMIA Status: Acute Comment: E.Coli.Likley source Orchitis/epididymitis with cutaneous fistula (4) Physical deconditioning Code(s): R53.81 - OTHER MALAISE Status: Acute (5) Dyslipidemia Code(s): E78.5 - HYPERLIPIDEMIA, UNSPECIFIED Status: Chronic (6) DM2 (diabetes mellitus, type 2) Status: Chronic Qualifiers: Diabetes mellitus halfway insulin use: without keno terminal operator use (7) PAD (peripheral artery disease) Code(s): I73.9 - PERIPHERAL VASCULAR DISEASE, UNSPECIFIED Status: Chronic (8) Dementia Code(s): F03.90 - UNSPECIFIED DEMENTIA WITHOUT BEHAVIORAL DISTURBANCE Status: Chronic (9) HTN (hypertension) Code(s): I10 - ESSENTIAL (PRIMARY) HYPERTENSION Status: Chronic (10) Protein-calorie malnutrition, moderate Code(s): E44.0 - MODERATE PROTEIN-CALORIE MALNUTRITION Status: Chronic (11) FRANKY (iron deficiency anemia) Code(s): D50.9 - IRON DEFICIENCY ANEMIA, UNSPECIFIED Status: Chronic - Plan continue antibiotics, PT/OT, respiratory therapy, incentive spirometry, out of bed/ambulate, DVT proph w/SCDs Renal Fx improving.follow nephro recs. -: awaiting OP Invanz set up.possible DC soon -: HD stable * . Review of Systems - Review of Systems Other: limited ROS due to dementia - Medications/Allergies Allergies/Adverse Reactions: Allergies Allergy/AdvReac Type Severity Reaction Status Date / Time No Known Allergies Allergy Verified 03/01/19 01:12 Medications: Current Medications Acetaminophen (Tylenol) 650 mg PO Q4H PRN PRN Reason: Headache/Fever/Mild Pain (1-3) Aspirin (Aspirin Chewable) 81 mg PO DAILY [facility] Last Admin: 03/08/19 08:06 Dose: 81 mg Calcium/Vitamin D (Caltrate 600 + Vit D) 1 tab PO BID-WM [facility] Last Admin: 03/08/19 08:06 Dose: 1 tab Dextrose/Water (Dextrose 50%) 25 gm SLOW IVP PRN PRN PRN Reason: Hypoglycemia Ergocalciferol (Drisdol) 1.25 mg PO Q7DAYS [facility] Fluconazole (Diflucan) 100 mg PO DAILY [facility] Last Admin: 03/08/19 08:06 Dose: 100 mg Glucagon (Glucagon) 1 mg IM PRN PRN PRN Reason: Hypoglycemia Guaifenesin/Dextromethorphan (Robitussin Dm) 15 ml PO Q4H PRN PRN Reason: Cough Dextrose/Water (D5w) 1,000 mls @ 0 mls/hr IV .Q0M PRN PRN Reason: Hypoglycemia Meropenem 1 gm/ Device 50 mls @ 100 mls/hr IVPB Q8HR [facility] Last Admin: 03/08/19 05:00 Dose: 50 mls Insulin Human Regular (Humulin R) 0 units SC .MILD SLIDING SCALE PRN PRN Reason: Mild Correctional Scale Last Admin: 03/06/19 16:50 Dose: 3 unit Insulin Human Regular (Humulin R) 0 units SC .BEDTIME SLIDING SC PRN PRN Reason: Bedtime Correctional Scale Last Admin: 03/01/19 21:55 Dose: 2 unit Loperamide HCl (Imodium) 1 mg PO Q4H PRN PRN Reason: Diarrhea/Loose Stools Last Admin: 03/06/19 20:28 Dose: 1 mg Miscellaneous Medication (Phos-Nak) 1 pkt PO 0600,1400,2200 [facility] Last Admin: 03/08/19 05:00 Dose: 1 pkt Ondansetron HCl (Zofran) 4 mg IVP Q6H PRN PRN Reason: Nausea/Vomiting Pantoprazole Sodium (Protonix) 40 mg PO QPM [facility] Last Admin: 03/07/19 19:59 Dose: 40 mg Senna/Docusate Sodium (Senokot S) 2 tab PO BIDPRN PRN PRN Reason: Constipation Sodium Chloride (Flush - Normal Saline) 10 ml IVF Q12H PRN PRN Reason: Saline Flush Last Admin: 03/06/19 20:29 Dose: 10 ml Zolpidem Tartrate (Ambien) 5 mg PO HSPRN PRN PRN Reason: Insomnia
--- NOTE | 2019-03-08 20:32 | PRG ---
DATE OF SERVICE: 03/08/2019 SUBJECTIVE: The patient is seen for ANGELA follow up. No new problem. Denied nausea, vomiting, or diarrhea. OBJECTIVE: VITAL SIGNS: Temperature 97.7, pulse 76, respiratory rate 16, SpO2 of 95% on room air, and blood pressure 147/82. GENERAL: Elderly male, in no distress. HEENT: Normocephalic and atraumatic. Oral mucosa is moist. CARDIOVASCULAR: Regular rhythm and rate with normal heart sounds 1 and 2. RESPIRATORY: Fair air entry bilaterally with some transmitted sounds. GI: Abdomen is full, soft, nontender, and nondistended with normal bowel sounds. EXTREMITIES: Mild bilateral ankle edema. NEUROLOGIC: Conscious, alert, and oriented x3 with appropriate mental status. Cranial nerves 2 through 12 are intact. DIAGNOSTIC DATA: Renal function panel showed sodium 144, potassium 4.1, chloride 109, CO2 of 24, BUN 36, creatinine 2.86, glucose 97, calcium 7.7, phosphorus 3.5, and albumin 2.4. ASSESSMENT AND PLAN: 1. Acute kidney injury: Creatinine is down to 2.8, that has been stable at 2.8 for 3 days. This may well be the new baseline. We will discontinue crystalloid and colloid. We will also avoid nephrotoxic agents including diuretics and angiotensin-converting enzyme inhibitors. We will monitor renal function in the morning. [place] oral intake advised. 2. Metabolic acidosis: Resolved. Continue alkali therapy. 3. Hypomagnesemia: Repleted. 4. Hypophosphatemia, repleted. 5. Hypokalemia, repleted. 6. Vitamin D deficiency with hypocalcemia: Continue vitamin D supplementation with calcium. 7. Anemia in chronic kidney disease: Severe iron deficiency noted. The patient is status post IV iron treatment. Continue oral iron supplementation. 8. The patient can be discharged from nephrology point of view. Close followup in the outpatient is recommended with repeat renal function test. Job ID: [id number]
[2019-03-08] MEDS: Sodium Bicarbonate Tab 325 MG TAB PO SCH (20:55)
[2019-03-09] MEDS: MEROPENEM 1 GM/50 ML 1 GM in Premix Bag 1 BAG IVPB SCH (05:00)
[2019-03-09 05:35] LABS: Albumin 1.9 g/dL (3.4-4.8); Anion Gap 14 mmol/L (10-20); BUN (Urea Nitrogen) 32 mg/dL (8.4-25.7); BUN/Creatinine Ratio 11.35; Calc. Creatinine Clearance 23 mL/min (70-130); Calcium 7.4 mg/dL (7.8-10.44); Carbon Dioxide 22 mmol/L (23-31); Chloride 109 mmol/L (98-107); Estimated GFR-MDRD 26; Glucose 94 mg/dL (83-110); Phosphorus 3.6 mg/dL (2.3-4.7); Potassium 4.2 mmol/L (3.5-5.1); Sodium 141 mmol/L (136-145)
[2019-03-09] MEDS: Sodium Bicarbonate Tab 325 MG TAB PO SCH (09:50)
[2019-03-09] MEDS: Aspirin Chewable 81 MG TAB PO SCH (09:50)
[2019-03-09] MEDS: Fluconazole 100 MG TAB PO SCH (09:50)
[2019-03-09] MEDS: Calcium Carbonate + Vit D 1 TAB PO SCH (09:50)
[2019-03-09 12:31] VITALS: BP 131/77; TEMP 97.7
[2019-03-09 13:12] VITALS: BMI 28.3
--- NOTE | 2019-03-09 13:36 | PRG ---
DATE OF SERVICE: 03/09/2019 SUBJECTIVE: Yovanny Smiley is awake, but difficulty in interaction due to his cognitive disability. OBJECTIVE: VITAL SIGNS: His vital signs showed normal temperature, BP 130/77, pulse 76, respirations 20, O2 saturation 95%. : The scrotal area is quite swollen as previously noted. The groin region looks like has had some debridement and is fresh looking now and appears to communicate with vas deferens tunneled towards the scrotum, right side. LUNGS: Clear. HEART: S1 and S2 regular rate. ABDOMEN: Soft, not distended. LABORATORY DATA: The white cell count is 9.9, hemoglobin 7.3, platelets 207. Chemistry with creatinine 2.82, which is a little bit lower than the day before. ASSESSMENT AND DISCUSSION: Type 2 diabetes, hypertension, peripheral vascular disease, previous cerebrovascular accident with dementia, fever, and likely orchiepididymitis with abscess. Continue meropenem. May consider adding antifungal. In his case, would have to be micafungin since Esther krusei is usually resistant to triazoles. Job ID: [id number]
--- NOTE | 2019-03-10 05:35 | DIS ---
DATE OF ADMISSION: 02/28/2019 DATE OF DISCHARGE: 03/09/2019 CONDITION: At the time of discharge, stable and improved. DISCHARGE DISPOSITION: [facility]. DISCHARGE DIAGNOSES: 1. __SEPSIS . 2. Acute kidney injury. 3. E coli bacteremia. 4. Orchitis epididymitis with cutaneous fistula. 5. Physical deconditioning. 6. Dyslipidemia. 7. Diabetes. 8. Peripheral arterial disease, chronic. 9. Dementia. 10. Hypertension. 11. Moderate protein-calorie malnutrition. 12. Iron deficiency anemia, chronic. DISCHARGE MEDICATIONS: Invanz 1 g daily up until 04/11/2019. Resume home medications as follows: 1. Glipizide 2.5 mg p.o. b.i.d. 2. Ranitidine 75 mg daily. 3. Levemir 4 units at bedtime. 4. Maalox p.r.n. 5. Robitussin p.r.n. 6. Tylenol p.r.n. 7. Loratadine p.r.n. 8. Aspirin 81 mg daily. 9. Humalog sliding scale. 10. Pravachol 20 mg daily. 11. Trazodone 25 mg at bedtime. DISCONTINUED MEDICATIONS: Lisinopril and metformin. IN-HOUSE CONSULTATION: 1. Urology, Dr. Villatoro. 2. Infectious Disease, Dr. Washington. 3. Pulmonary Medicine, Dr. John. 4. Nephrology, Dr. Santiago. PROCEDURES DONE IN HOSPITAL: 1. CT scan of the abdomen and pelvis on 02/28/2019, which shows no evidence of acute processes, but it is a suboptimal study because it is done without contrast. 2. CT scan of the brain on 03/01/2019, which shows diffuse cortical atrophy and right temporal bone fracture. 3. Testicular ultrasound on 03/01/2019, which shows mixed echogenic debris filled heterogeneous intrascrotal material, possibly hematoma versus abscess. 4. Repeat CT scan of the abdomen and pelvis on 03/01/2019, without contrast, which once again is unremarkable. A large left hydrocele was seen with an irregular appearance to the perineum compatible with a previous history of wound. 5. Placement of a PICC line on 03/07/2019. PRIMARY CARE PHYSICIAN: Dr. Kern. HISTORY OF PRESENTING ILLNESS: Mr. Smiley is an 83-year-old male with past medical history of diabetes, hypertension, peripheral vascular disease, and dementia, who was brought into the emergency room for complaints of not feeling well. He was found to have leukocytosis with WBCs of 38,000, acidemia with pH of 7.15, pCO2 of 16, bicarb less than 8, and high anion gap. He had lactic acidosis with lactic acid of 6.4, elevated troponin, elevated lipase. Beta hydroxybutyrate elevated at 2.09 and potassium of 5.6, creatinine of 4.86, BUN of 112. No other history was obtainable from him at that admission. Abdominal and pelvic CT scan done in the emergency room was unremarkable. He was admitted with empiric diagnosis of sepsis of unknown source and was started on empiric antibiotics. Please see admission history and physical dictated by Dr. Estrella on the date of admission on 02/28/2019. HOSPITAL COURSE: Nephrology was consulted with regard to acute renal insufficiency and Dr. Santiago saw the patient. In his opinion, it was most likely acute tubular necrosis versus dehydration. He was treated with IV fluids and gradually, his renal function improved. His creatinine on the day of discharge was 2.82 down from 4.86 on presentation. He was cleared by Nephrology for discharge. With regard to his sepsis, Dr. Washington from Infectious Disease saw the patient and he underwent a swallow workup including a repeat CT scan of the abdomen and pelvis and multiple chest x-rays. His blood culture came back positive for Escherichia coli 2/2 and urine showed yeast. His C diff testing was negative. Urology was consulted because the patient was found to have scrotal edema. Dr. Villatoro from Urology saw the patient and said that this is chronic for patient as he has history of a large hydrocele. He has been evaluated by Dr. Chaidez in 2016. According to Dr. Villatoro, there was no evidence of abscess and no further intervention was done except for continuation of antibiotics. Testes demonstrated echogenic debris in the scrotum. He was found to have an draining area over the right groin, possibly a cutaneous fistula from possible orchiepididymitis of his scrotal abscess. This was as per Dr. Washington' evaluation. This was cultured and showed E coli possible Esther and group B agalactiae. This was treated empirically in the hospital with meropenem and for discharge, the patient was placed on Invanz for 6 more weeks with continuation of Diflucan that he was getting here in the hospital. A PICC line was placed for these reasons. Eventually, the patient was stable enough for next level of care. He was discharged to [facility] where they can do the IV antibiotics with a PICC line. His leukocytosis and anion gap metabolic acidosis resolved by the time of discharge. His bicarb was 22 on the day of discharge and anion gap of 14. BUN 32, creatinine 2.82. He was seen and examined prior to discharge. He does not provide any history and would rather just sleep. He denies any discomfort. PHYSICAL EXAMINATION: VITAL SIGNS: This morning; temperature 97.7, pulse of 76, respirations 20, saturating 95% on room air, blood pressure 131/77. GENERAL: No acute distress. He is awake, alert, oriented to self at least. CHEST: Clear to auscultation bilaterally. HEART: Rate and rhythm regular. : Groin examination revealed cutaneous draining fistula in the right groin with scrotal edema. DISCHARGE INSTRUCTIONS: The patient will follow up with the physicians over at [facility]. He will get weekly CBC, CMP, and CRP checked with reports to Dr. Washington. He will follow up with Nephrology, Dr. Santiago with outpatient labs for outpatient followup as well. He is hemodynamically stable and will be discharged. TOTAL TIME SPENT: 35 minutes. Job ID: [id number] MTDD
[2019-03-10] MEDS ORDERED: Ergocalciferol 1.25 MG(50,000 UNITS) CAP PO SCH (09:00)
--- NOTE | 2019-03-11 13:51 | EKG ---
Test Reason : Blood Pressure : / mmHG Vent. Rate : 110 BPM Atrial Rate : 110 BPM P-R Int : 198 ms QRS Dur : 082 ms QT Int : 316 ms P-R-T Axes : 075 061 077 degrees QTc Int : 427 ms Sinus tachycardia Low voltage QRS Borderline ECG Confirmed by PANKAJ OLIVO DO ([id number]), society editor HANH CLEMENT ([id number] on 03/11/2019 1:50:58 PM Referred By: Confirmed By:PANKAJ OLIVO DO
== END 2019-03-09 14:14 | DRG 871 ==
LOC: ERS 15:43 → IMCU/EMU 20:30 → ONC 03-02 13:23 → T4-A 03-06 23:51
PROVIDERS: ADMIT Internal Medicine; ATTEND Internal Medicine
PROC: 02HV33Z Insertion of Infusion Device into Superior Vena Cava, Percutaneous Approach (ICD-10-PCS; principal; 2019-03-07)
DX: A41.51 Sepsis due to Escherichia coli [E. coli] (principal); G93.41 Metabolic encephalopathy; E43 Unspecified severe protein-calorie malnutrition; E87.2 Acidosis; N17.9 Acute kidney failure, unspecified; R64 Cachexia; Z66 Do not resuscitate; N45.3 Epididymo-orchitis; E11.51 Type 2 diabetes mellitus with diabetic peripheral angiopathy without gangrene; I12.9 Hypertensive chronic kidney disease with stage 1 through stage 4 chronic kidney disease, or unspecified chronic kidney disease; E87.5 Hyperkalemia; E11.22 Type 2 diabetes mellitus with diabetic chronic kidney disease; K21.9 Gastro-esophageal reflux disease without esophagitis; E11.65 Type 2 diabetes mellitus with hyperglycemia; E86.0 Dehydration; F03.90 Unspecified dementia, unspecified severity, without behavioral disturbance, psychotic disturbance, mood disturbance, and anxiety; N40.0 Benign prostatic hyperplasia without lower urinary tract symptoms; N43.3 Hydrocele, unspecified; E55.9 Vitamin D deficiency, unspecified; D50.9 Iron deficiency anemia, unspecified; D63.1 Anemia in chronic kidney disease; N18.9 Chronic kidney disease, unspecified; E83.51 Hypocalcemia; E87.6 Hypokalemia; E83.42 Hypomagnesemia; Z79.82 Long term (current) use of aspirin; Z79.4 Long term (current) use of insulin; Z79.899 Other long term (current) drug therapy; Z87.891 Personal history of nicotine dependence; Z68.28 Body mass index [BMI] 28.0-28.9, adult; Z79.84 Long term (current) use of oral hypoglycemic drugs; Z86.73 Personal history of transient ischemic attack (TIA), and cerebral infarction without residual deficits
CPT/HCPCS: 36415; 36416; 36556; 36569; 51702; 70450; 71045; 74176; 76870; 80048; 80053; 80069; 81003; 81015; 82010; 82274; 82306; 82330; 82553; 82570; 82728; 82803; 82805; 83540; 83550; 83605; 83690; 83735; 83970; 84100; 84156; 84300; 84484; 84540; 85025; 87040; 87045; 87046; 87070; 87077; 87086; 87149; 87186; 87205; 87324; 87449; 87899; 93005; 96361; 96365; 96367; 96375; C1751; J1644; J1815; J2185; J2543; J2916; J3370; J3475; J3490; J7050; J7070; P9047